=== PATIENT | female | born 1940 | race Caucasian/White ===

== ENCOUNTER 2021-12-30 14:22 | Inpatient (IN) | payer OTHER ==
[2021-12-30] MEDS ORDERED: LORazepam 2 MG/ML SDV VIAL IM ONE (14:47)
[2021-12-30] MEDS ORDERED: LORazepam 2 MG/ML SDV VIAL IVPUSH ONE (14:50)
[2021-12-30] MEDS ORDERED: SODIUM CHLORIDE 1,000 ML IV SCH (15:00)
[2021-12-30 15:32] LABS: BASO % 0.5 % (0-2.0); EOS % 0.6 % (0-4.5); HEMATOCRIT 39.2 % (32.4-45.2); HEMOGLOBIN 13.4 GM/dL (10.7-15.3); LYMPH % 14.3 % (8-40); MCHC 34.1 g/dl (32.0-36.0); MEAN CELL VOLUME 96.6 fl (80-96); MEAN PLT VOLUME 7.7 fl (7.5-11.1); MONO % 14.9 % (3.8-10.2); NEUT % 69.7 % (42.8-82.8); PLATELET COUNT 263 10^3/uL (134-434); RBC 4.05 M/mm3 (3.60-5.2); RDW 13.1 % (11.6-15.6); WHITE BLOOD COUNT 7.3 K/mm3 (4.0-10.0)
[2021-12-30 15:38] LABS: INR 0.97 (0.83-1.09); PROTHROMBIN TIME (PATIENT) 11.2 SEC (9.7-13.0)
[2021-12-30 15:41] LABS: ACTIVATED PTT 27.2 SECONDS (25.2-36.5)
[2021-12-30 15:56] LABS: ALBUMIN 4.1 g/dl (3.4-5.0); BLOOD UREA NITROGEN 15.2 mg/dL (7-18); CALCIUM 9.5 mg/dL (8.5-10.1)
[2021-12-30 16:01] LABS: BILIRUBIN,TOTAL 0.9 mg/dL (0.2-1); TOT PROT 7.4 g/dl (6.4-8.2)
[2021-12-30] MEDS ORDERED: ASPIRIN 81 MG CHEWABLE TABLETS PO ONE (16:08)
[2021-12-30] MEDS ORDERED: ASPIRIN 81 MG CHEWABLE TABLETS ONE (16:25)
[2021-12-30 16:56] LABS: PH,URINE 8.5 (5.0-8.0); URINE APPEARANCE CLEAR; URINE BILIRUBIN NEGATIVE (NEGATIVE); URINE COLOR YELLOW; URINE GLUCOSE (UA) NEGATIVE (NEGATIVE); URINE KETONE NEGATIVE (NEGATIVE); URINE LEUK ESTERASE NEGATIVE (NEGATIVE); URINE NITRITE NEGATIVE (NEGATIVE); URINE PROTEIN NEGATIVE (NEGATIVE); URINE UROBILINOGEN 0.2 mg/dL (0.2-1.0)
[2021-12-30] MEDS: METOPROLOL TARTRATE 50 MG TABLET (FP) PO SCH (23:46)
[2021-12-31 07:48] LABS: HEMATOCRIT 35.5 % (32.4-45.2); HEMOGLOBIN 12.4 GM/dL (10.7-15.3); MCH 34.5 pg (25.7-33.7); MCHC 34.9 g/dl (32.0-36.0); MEAN CELL VOLUME 98.8 fl (80-96); MEAN PLT VOLUME 7.6 fl (7.5-11.1); PLATELET COUNT 221 10^3/uL (134-434); RBC 3.59 M/mm3 (3.60-5.2)
[2021-12-31 08:24] LABS: BLOOD UREA NITROGEN 12.7 mg/dL (7-18)
[2021-12-31 08:27] LABS: CREATININE 0.7 mg/dL (0.55-1.3)
[2021-12-31 08:45] LABS: CALCIUM 7.9 mg/dL (8.5-10.1)
[2021-12-31 09:14] LABS: ANISOCYTOSIS 1+; MACROCYTOSIS 1+; PLATELET ESTIMATE NORMAL
[2021-12-31] MEDS: ASPIRIN COATED 81 MG TABLET.EC PO SCH (09:50)
[2021-12-31] MEDS: METOPROLOL TARTRATE 50 MG TABLET (FP) PO SCH ×2 (09:50→21:26)
[2021-12-31] MEDS: ENOXAPARIN NA (PORCINE) 40 MG/0.4 ML DISP.SYRIN SQ SCH (09:50)
[2021-12-31] MEDS: PANTOPRAZOLE 20 MG TABLET PO SCH (09:50)
[2021-12-31] MEDS ORDERED: HYDROCHLOROTHIAZIDE 12.5 MG CAPSULE (FP) PO SCH (10:00)
[2021-12-31] MEDS ORDERED: PATIENT'S OWN MEDICATION (NON-FORMULARY) (Budesonide/Glycopyr/Formoterol [Breztri Aerosphe IH SCH (10:00)
[2021-12-31] MEDS ORDERED: ATORVASTATIN CA 40 MG TABLET (FP) PO SCH (22:00)
[2022-01-01] MEDS: ACETAMINOPHEN 325 MG TABLET (FP) PO PRN ×2 (02:52→14:53)
[2022-01-01 07:50] LABS: HEMATOCRIT 35.7 % (32.4-45.2); HEMOGLOBIN 12.3 GM/dL (10.7-15.3); MCH 34.1 pg (25.7-33.7); MCHC 34.5 g/dl (32.0-36.0); MEAN CELL VOLUME 98.7 fl (80-96); MEAN PLT VOLUME 7.6 fl (7.5-11.1); PLATELET COUNT 209 10^3/uL (134-434); RBC 3.61 M/mm3 (3.60-5.2); RDW 12.8 % (11.6-15.6); WHITE BLOOD COUNT 5.6 K/mm3 (4.0-10.0)
[2022-01-01 09:10] LABS: ALBUMIN 3.1 g/dl (3.4-5.0); BILIRUBIN,TOTAL 0.6 mg/dL (0.2-1); BLOOD UREA NITROGEN 13.3 mg/dL (7-18); CALCIUM 8.2 mg/dL (8.5-10.1); CREATININE 0.9 mg/dL (0.55-1.3); TOT PROT 5.9 g/dl (6.4-8.2)
[2022-01-01] MEDS: METOPROLOL TARTRATE 50 MG TABLET (FP) PO SCH (10:00)
[2022-01-01] MEDS: ASPIRIN COATED 81 MG TABLET.EC PO SCH (10:00)
[2022-01-01] MEDS ORDERED: DONEPEZIL HCL 5 MG TABLET (FP) PO SCH (10:00)
[2022-01-01] MEDS ORDERED: HYDROCHLOROTHIAZIDE 12.5 MG CAPSULE (FP) PO SCH ×2 (10:00→14:45)
[2022-01-01] MEDS: PANTOPRAZOLE 20 MG TABLET PO SCH (10:01)
[2022-01-01] MEDS: ENOXAPARIN NA (PORCINE) 40 MG/0.4 ML DISP.SYRIN SQ SCH ×2 (10:01→10:05)
[2022-01-01 14:05] VITALS: BP 134/74; PULSE 60; TEMP 98.2
[2022-01-02 14:17] VITALS: BMI 19.3
== END 2022-01-01 17:37 | disposition home or self-care (01) | DRG 57 ==
LOC: JER 14:22 → JERBED 17:55 → J4W 22:32
PROVIDERS: ADMIT Internal Medicine; ATTEND Internal Medicine
DX: G30.9 Alzheimer's disease, unspecified (principal); F02.81 Dementia in other diseases classified elsewhere, unspecified severity, with behavioral disturbance; I10 Essential (primary) hypertension; E78.5 Hyperlipidemia, unspecified; J44.9 Chronic obstructive pulmonary disease, unspecified; G43.909 Migraine, unspecified, not intractable, without status migrainosus; E11.40 Type 2 diabetes mellitus with diabetic neuropathy, unspecified; G62.9 Polyneuropathy, unspecified
CPT/HCPCS: 36415; 70450-TC; 70496-TC; 70498-TC; 80048; 80053; 80061; 81003; 82607; 82746; 82962; 83036; 84443; 85025; 85027; 85610; 85730; 86618; 86780; 86850; 86900; 86901; 93005; 93010; 99291; C9803-CS; U0003; U0005

== ENCOUNTER 2022-06-12 09:25 | Inpatient (IN) | payer OTHER ==
[2022-06-12 09:36] VITALS: BMI 21.9
[2022-06-12 11:29] LABS: HEMATOCRIT 38.3 % (32.4-45.2); MCH 32.3 pg (25.7-33.7); MEAN PLT VOLUME 7.7 fl (7.5-11.1); PLATELET COUNT 159 10^3/uL (134-434); RBC 4.03 M/mm3 (3.60-5.2); RDW 13.4 % (11.6-15.6); WHITE BLOOD COUNT 3.6 K/mm3 (4.0-10.0)
[2022-06-12 11:44] LABS: ALBUMIN 3.8 g/dl (3.4-5.0); BLOOD UREA NITROGEN 11.8 mg/dL (7-18); MAGNESIUM 2.1 mg/dL (1.8-2.4)
[2022-06-12 11:46] LABS: CREATININE 0.9 mg/dL (0.55-1.3); PHOSPHOROUS 3.8 mg/dL (2.5-4.9)
[2022-06-12 11:49] LABS: BILIRUBIN,TOTAL 0.6 mg/dL (0.2-1); TOT PROT 7.2 g/dl (6.4-8.2)
[2022-06-12 12:39] LABS: ANISOCYTOSIS 0; HELMET CELLS 0; HOWELL-JOLLY BODIES 0; MACROCYTOSIS 0; OVALOCYTE 0; ROULEAU 0; SICKELED CELLS 0; TARGET CELLS 0; TEAR DROP CELLS 0; TOXIC GRANULATION 0
[2022-06-12] MEDS ORDERED: SODIUM CHLORIDE 0.9% 500 ML INFUS.BAG IV ONE (13:28)
[2022-06-12 14:04] LABS: EPI CELLS >36 /uL (0-25.1); HYALINE CASTS 1 /uL (0-3.1); PH,URINE 7.5 (5.0-8.0); URINE APPEARANCE CLOUDY; URINE BACTERIA 2718 /uL (0-1359); URINE BILIRUBIN NEGATIVE (NEGATIVE); URINE COLOR YELLOW; URINE GLUCOSE (UA) NEGATIVE (NEGATIVE); URINE KETONE TRACE (NEGATIVE); URINE LEUK ESTERASE 1+ (NEGATIVE); URINE NITRITE NEGATIVE (NEGATIVE); URINE PROTEIN TRACE (NEGATIVE); URINE RBC 38 /uL (0-23.9); URINE UROBILINOGEN 0.2 mg/dL (0.2-1.0); URINE WBC 97 /uL (0-25.8)
[2022-06-12] MEDS: DONEPEZIL HCL 5 MG TABLET (FP) PO SCH (22:33)
[2022-06-13 07:29] LABS: HEMATOCRIT 40.3 % (32.4-45.2); HEMOGLOBIN 13.9 GM/dL (10.7-15.3); MCHC 34.4 g/dl (32.0-36.0); MEAN PLT VOLUME 7.5 fl (7.5-11.1); PLATELET COUNT 137 10^3/uL (134-434); RBC 4.33 M/mm3 (3.60-5.2); RDW 13.3 % (11.6-15.6); WHITE BLOOD COUNT 4.4 K/mm3 (4.0-10.0)
[2022-06-13 07:47] LABS: CALCIUM 8.5 mg/dL (8.5-10.1)
[2022-06-13 07:48] LABS: BLOOD UREA NITROGEN 13.3 mg/dL (7-18); MAGNESIUM 2.1 mg/dL (1.8-2.4)
[2022-06-13 07:51] LABS: CREATININE 0.8 mg/dL (0.55-1.3)
[2022-06-13 07:52] LABS: PHOSPHOROUS 3.7 mg/dL (2.5-4.9)
[2022-06-13 09:41] LABS: ANISOCYTOSIS 2+
[2022-06-13] MEDS: ASPIRIN COATED 81 MG TABLET.EC PO SCH (09:42)
[2022-06-13] MEDS: ENOXAPARIN NA (PORCINE) 40 MG/0.4 ML DISP.SYRIN SQ SCH (09:42)
[2022-06-13] MEDS: DONEPEZIL HCL 5 MG TABLET (FP) PO SCH (21:51)
[2022-06-14] MEDS ORDERED: ADENOSINE 6 MG/2 ML VIAL IVPUSH ONE (05:58)
[2022-06-14] MEDS: METOPROLOL TARTRATE 25 MG TABLET (FP) PO SCH ×2 (06:33→22:52)
[2022-06-14 08:05] LABS: HEMATOCRIT 42.4 % (32.4-45.2); HEMOGLOBIN 14.2 GM/dL (10.7-15.3); MCH 31.3 pg (25.7-33.7); MCHC 33.5 g/dl (32.0-36.0); MEAN CELL VOLUME 93.6 fl (80-96); PLATELET COUNT 153 10^3/uL (134-434); RBC 4.53 M/mm3 (3.60-5.2); RDW 13.4 % (11.6-15.6); WHITE BLOOD COUNT 3.7 K/mm3 (4.0-10.0)
[2022-06-14 08:23] LABS: ALBUMIN 3.5 g/dl (3.4-5.0); BLOOD UREA NITROGEN 15.8 mg/dL (7-18); CALCIUM 8.2 mg/dL (8.5-10.1)
[2022-06-14 08:24] LABS: MAGNESIUM 2.1 mg/dL (1.8-2.4)
[2022-06-14 08:26] LABS: CREATININE 0.8 mg/dL (0.55-1.3); PHOSPHOROUS 3.3 mg/dL (2.5-4.9)
[2022-06-14 08:29] LABS: BILIRUBIN,TOTAL 0.5 mg/dL (0.2-1); TOT PROT 6.8 g/dl (6.4-8.2)
[2022-06-14] MEDS ORDERED: POTASSIUM CHLORIDE TABS 10 MEQ TABLET.ER (FP) PO ONE (09:55)
[2022-06-14] MEDS: ASPIRIN COATED 81 MG TABLET.EC PO SCH (09:58)
[2022-06-14] MEDS: ENOXAPARIN NA (PORCINE) 40 MG/0.4 ML DISP.SYRIN SQ SCH (09:58)
[2022-06-14] MEDS ORDERED: METOPROLOL TARTRATE 25 MG TABLET (FP) PO SCH (10:00)
[2022-06-14 10:07] LABS: N-TERMINAL BNP 1065.7 pg/ml (5-450)
[2022-06-14] MEDS: POTASSIUM CHLORIDE ORAL LIQUID 20 MEQ/15 ML PO SCH ×2 (12:11→22:52)
[2022-06-14] MEDS ORDERED: PIPERACILLIN/TAZOB 3.375 GM 3.375 GM in DEXTROSE 5%-WATER - 50 ML IVPB SCH ×2 (14:45→17:05)
[2022-06-14] MEDS: DONEPEZIL HCL 5 MG TABLET (FP) PO SCH (22:52)
[2022-06-15] MEDS: PIPERACILLIN/TAZOB 3.375 GM 3.375 GM in DEXTROSE 5%-WATER - 50 ML IVPB SCH ×3 (00:38→18:48)
[2022-06-15] MEDS: POTASSIUM CHLORIDE ORAL LIQUID 20 MEQ/15 ML PO SCH ×2 (10:33→21:41)
[2022-06-15] MEDS: ENOXAPARIN NA (PORCINE) 40 MG/0.4 ML DISP.SYRIN SQ SCH (10:36)
[2022-06-15] MEDS: ASPIRIN COATED 81 MG TABLET.EC PO SCH (10:37)
[2022-06-15] MEDS: METOPROLOL TARTRATE 25 MG TABLET (FP) PO SCH ×2 (10:37→21:41)
[2022-06-15] MEDS: APIXABAN 2.5 MG TABLET PO SCH ×2 (12:43→21:41)
[2022-06-15] MEDS: DONEPEZIL HCL 5 MG TABLET (FP) PO SCH (21:41)
[2022-06-16] MEDS: PIPERACILLIN/TAZOB 3.375 GM 3.375 GM in DEXTROSE 5%-WATER - 50 ML IVPB SCH ×3 (01:18→17:18)
[2022-06-16 08:40] LABS: HEMATOCRIT 37.6 % (32.4-45.2); HEMOGLOBIN 12.6 GM/dL (10.7-15.3); MCH 31.5 pg (25.7-33.7); MCHC 33.4 g/dl (32.0-36.0); MEAN CELL VOLUME 94.4 fl (80-96); MEAN PLT VOLUME 7.9 fl (7.5-11.1); PLATELET COUNT 154 10^3/uL (134-434); RBC 3.98 M/mm3 (3.60-5.2); RDW 13.5 % (11.6-15.6); WHITE BLOOD COUNT 3.3 K/mm3 (4.0-10.0)
[2022-06-16 09:08] LABS: BILIRUBIN,TOTAL 0.5 mg/dL (0.2-1); CALCIUM 8.3 mg/dL (8.5-10.1)
[2022-06-16 09:09] LABS: TOT PROT 5.9 g/dl (6.4-8.2)
[2022-06-16 09:10] LABS: MAGNESIUM 2.1 mg/dL (1.8-2.4); PHOSPHOROUS 4.2 mg/dL (2.5-4.9)
[2022-06-16 09:13] LABS: BLOOD UREA NITROGEN 19.5 mg/dL (7-18)
[2022-06-16 09:15] LABS: CREATININE 0.9 mg/dL (0.55-1.3)
[2022-06-16 09:34] LABS: ANISOCYTOSIS 0; HELMET CELLS 0; HOWELL-JOLLY BODIES 0; MACROCYTOSIS 0; OVALOCYTE 0; ROULEAU 0; SICKELED CELLS 0; TARGET CELLS 0; TEAR DROP CELLS 0; TOXIC GRANULATION 0
[2022-06-16] MEDS: METOPROLOL TARTRATE 25 MG TABLET (FP) PO SCH (10:31)
[2022-06-16] MEDS: APIXABAN 2.5 MG TABLET PO SCH ×2 (10:31→21:47)
[2022-06-16] MEDS: POTASSIUM CHLORIDE ORAL LIQUID 20 MEQ/15 ML PO SCH ×2 (10:32→21:48)
[2022-06-16] MEDS ORDERED: PIPERACILLIN/TAZOBACTAM 3.375 GM VIAL IVPB ONE (16:51)
[2022-06-16] MEDS: DONEPEZIL HCL 5 MG TABLET (FP) PO SCH (21:48)
[2022-06-16] MEDS ORDERED: metoPROLOL SUCCINATE 25 MG TAB.SR.24H (FP) PO SCH (22:00)
[2022-06-17] MEDS: PIPERACILLIN/TAZOB 3.375 GM 3.375 GM in DEXTROSE 5%-WATER - 50 ML IVPB SCH ×3 (01:19→18:33)
[2022-06-17] MEDS ORDERED: METOPROLOL TARTRATE 5 MG/5 ML VIAL IVPUSH ONE (02:36)
[2022-06-17] MEDS ORDERED: dilTIAZem HCL 50 MG/10 ML - 10 ML VIAL IVPUSH ONE ×2 (03:36→09:02)
[2022-06-17] MEDS ORDERED: dilTIAZem HCL 50 MG/10 ML - 10 ML VIAL IVPUSH PRN (05:16)
[2022-06-17] MEDS ORDERED: ACETAMINOPHEN 325 MG TABLET (FP) PO PRN (07:49)
[2022-06-17] MEDS ORDERED: dilTIAZem HCL 25 MG/5 ML - 5 ML VIAL IVPUSH ONE (08:30)
[2022-06-17] MEDS: METOPROLOL TARTRATE 50 MG TABLET (FP) PO SCH ×2 (09:31→22:37)
[2022-06-17] MEDS: APIXABAN 2.5 MG TABLET PO SCH ×2 (09:31→22:37)
[2022-06-17] MEDS: HYDROCORTISONE 2.5% TOPICAL CREAM 30 GM TUBE RC SCH ×2 (11:59→22:37)
[2022-06-17] MEDS: POTASSIUM CHLORIDE ORAL LIQUID 20 MEQ/15 ML PO SCH (12:39)
[2022-06-17] MEDS: DONEPEZIL HCL 5 MG TABLET (FP) PO SCH (22:37)
[2022-06-18] MEDS: PIPERACILLIN/TAZOB 3.375 GM 3.375 GM in DEXTROSE 5%-WATER - 50 ML IVPB SCH ×3 (01:22→17:25)
[2022-06-18] MEDS: VALSARTAN 80 MG TABLET PO SCH (10:33)
[2022-06-18] MEDS: POTASSIUM CHLORIDE ORAL LIQUID 20 MEQ/15 ML PO SCH (10:33)
[2022-06-18] MEDS: METOPROLOL TARTRATE 50 MG TABLET (FP) PO SCH ×2 (10:33→21:24)
[2022-06-18] MEDS: APIXABAN 2.5 MG TABLET PO SCH ×2 (10:33→21:24)
[2022-06-18] MEDS: HYDROCORTISONE 2.5% TOPICAL CREAM 30 GM TUBE RC SCH ×2 (10:33→21:25)
[2022-06-18] MEDS: AMOX TR/POT CLAV 875MG/125MG TABLETS (FP) PO SCH (18:08)
[2022-06-18] MEDS: DONEPEZIL HCL 5 MG TABLET (FP) PO SCH (21:24)
[2022-06-19] MEDS: HYDROCORTISONE 2.5% TOPICAL CREAM 30 GM TUBE RC SCH (09:54)
[2022-06-19] MEDS: AMOX TR/POT CLAV 875MG/125MG TABLETS (FP) PO SCH (09:54)
[2022-06-19] MEDS: METOPROLOL TARTRATE 50 MG TABLET (FP) PO SCH (09:55)
[2022-06-19] MEDS: VALSARTAN 80 MG TABLET PO SCH (09:55)
[2022-06-19] MEDS: APIXABAN 2.5 MG TABLET PO SCH (09:55)
[2022-06-19] MEDS: POTASSIUM CHLORIDE ORAL LIQUID 20 MEQ/15 ML PO SCH (09:55)
[2022-06-19 10:53] VITALS: BP 140/94; PULSE 88; RESP 17; TEMP 98.2
== END 2022-06-19 14:39 | disposition home or self-care (01) | DRG 689 ==
LOC: JER 09:25 → UNDOADMOB 13:17 → JERBED 13:17 → INTOOBSV 13:17 → JERBED 14:24 → J4W 20:34 → OBSVTOIN 06-14 13:17
PROVIDERS: ADMIT Internal Medicine
DX: N39.0 Urinary tract infection, site not specified (principal); U07.1 COVID-19; I50.30 Unspecified diastolic (congestive) heart failure; I24.8 Other forms of acute ischemic heart disease; I47.1 Supraventricular tachycardia; I48.0 Paroxysmal atrial fibrillation; F03.90 Unspecified dementia, unspecified severity, without behavioral disturbance, psychotic disturbance, mood disturbance, and anxiety; K21.9 Gastro-esophageal reflux disease without esophagitis; I25.119 Atherosclerotic heart disease of native coronary artery with unspecified angina pectoris; I11.0 Hypertensive heart disease with heart failure; E87.6 Hypokalemia
CPT/HCPCS: 0241U-QW; 36415; 70450-TC; 71045-TC-FY; 72125-TC; 72170-TC-FY; 80048; 80053; 81003; 82550; 82553; 83735; 83880; 84100; 84439; 84443; 84484; 85025; 85027; 85651; 86140; 87086; 87186; 87324; 87449; 93005; 93010; 93306-TC; 93880-TC; 97116-GP; 97162-GP; 99285-25; G0378

== ENCOUNTER 2022-09-01 10:11 | Emergency (ER) | payer OTHER ==
[2022-09-01 11:29] VITALS: TEMP 98.3; BMI 27.4
[2022-09-01] MEDS ORDERED: MAG HYDROX/AL HYDROX/SIMETH 30 ML UNIT-DOSE CUP PO ONE (11:32)
[2022-09-01] MEDS ORDERED: FAMOTIDINE 20 MG/50 ML IVPB 20 MG/50 ML MG IVPB ONE ×2 (11:32→11:35)
[2022-09-01] MEDS ORDERED: ACETAMINOPHEN 1000 MG/100 ML BAG IVPB ONE (11:32)
[2022-09-01 11:33] VITALS: BP 140/97; PULSE 64; RESP 15
[2022-09-01] MEDS ORDERED: MAG HYDROX/AL HYDROX/SIMETH 30 ML UNIT-DOSE CUP ONE (11:35)
[2022-09-01] MEDS ORDERED: ACETAMINOPHEN INJECTION 100 ML IVPB ONE (11:35)
[2022-09-01 12:02] LABS: HEMATOCRIT 35.9 % (32.4-45.2); HEMOGLOBIN 12.1 GM/dL (10.7-15.3); MCH 31.9 pg (25.7-33.7); MCHC 33.7 g/dl (32.0-36.0); MEAN CELL VOLUME 94.6 fl (80-96); MEAN PLT VOLUME 7.5 fl (7.5-11.1); PLATELET COUNT 183 10^3/uL (134-434); RBC 3.79 M/mm3 (3.60-5.2); RDW 13.5 % (11.6-15.6); WHITE BLOOD COUNT 5.9 K/mm3 (4.0-10.0)
[2022-09-01 12:03] LABS: EPI CELLS >36 /uL (0-25.1); HYALINE CASTS 1 /uL (0-3.1); PH,URINE 7.5 (5.0-8.0); URINE APPEARANCE CLOUDY; URINE BACTERIA 367 /uL (0-1359); URINE BILIRUBIN NEGATIVE (NEGATIVE); URINE COLOR YELLOW; URINE GLUCOSE (UA) NEGATIVE (NEGATIVE); URINE KETONE TRACE (NEGATIVE); URINE LEUK ESTERASE TRACE (NEGATIVE); URINE NITRITE NEGATIVE (NEGATIVE); URINE PROTEIN TRACE (NEGATIVE); URINE RBC 22 /uL (0-23.9); URINE WBC 14 /uL (0-25.8)
[2022-09-01 12:23] LABS: ALBUMIN 3.3 g/dl (3.4-5.0); BLOOD UREA NITROGEN 12.5 mg/dL (7-18); MAGNESIUM 1.9 mg/dL (1.8-2.4)
[2022-09-01 12:24] LABS: CALCIUM 8.8 mg/dL (8.5-10.1)
[2022-09-01 12:25] LABS: ANISOCYTOSIS 0; MACROCYTOSIS 0
[2022-09-01 12:26] LABS: CREATININE 0.7 mg/dL (0.55-1.3)
[2022-09-01 12:27] LABS: BILIRUBIN,TOTAL 0.8 mg/dL (0.2-1)
[2022-09-01 12:28] LABS: TOT PROT 6.3 g/dl (6.4-8.2)
== END 2022-09-01 15:29 | disposition home or self-care (01) ==
LOC: JER 10:11
PROC: 3E0333Z Introduction of Anti-inflammatory into Peripheral Vein, Percutaneous Approach (ICD-10-PCS; principal; 2022-09-01)
PROC: 3E033GC Introduction of Other Therapeutic Substance into Peripheral Vein, Percutaneous Approach (ICD-10-PCS; 2022-09-01)
DX: S09.90XA Unspecified injury of head, initial encounter (principal); R07.9 Chest pain, unspecified; W01.0XXA Fall on same level from slipping, tripping and stumbling without subsequent striking against object, initial encounter
CPT/HCPCS: 0241U-QW; 70450-TC; 71045-TC-FY; 71250-TC; 72125-TC; 80053; 81003; 83735; 84484; 85025; 87086; 93005; 93010; 99285-25

== ENCOUNTER 2022-11-15 16:26 | Inpatient (IN) | payer OTHER ==
[2022-11-15] MEDS ORDERED: LORazepam 2 MG/ML SDV VIAL IVPUSH ONE ×2 (17:15→19:56)
[2022-11-15 17:28] LABS: VENOUS BASE EXCESS -1.3 mmol/L (-2-2); VENOUS PCO2 41.7 mmHg (38-52); VENOUS PH 7.375 (7.310-7.410)
[2022-11-15 17:31] LABS: BASO % 0.8 % (0-2.0); EOS % 2.1 % (0-4.5); HEMATOCRIT 37.8 % (32.4-45.2); HEMOGLOBIN 12.6 GM/dL (10.7-15.3); LYMPH % 30.3 % (8-40); MCH 30.9 pg (25.7-33.7); MCHC 33.3 g/dl (32.0-36.0); MEAN CELL VOLUME 92.9 fl (80-96); MEAN PLT VOLUME 7.5 fl (7.5-11.1); MONO % 26.1 % (3.8-10.2); NEUT % 40.7 % (42.8-82.8); PLATELET COUNT 234 10^3/uL (134-434); RBC 4.07 M/mm3 (3.60-5.2); RDW 14.4 % (11.6-15.6); WHITE BLOOD COUNT 5.9 K/mm3 (4.0-10.0)
[2022-11-15 17:37] LABS: INR 1.04 (0.83-1.09); PROTHROMBIN TIME (PATIENT) 12.1 SEC (9.7-13.0)
[2022-11-15 17:40] LABS: ACTIVATED PTT 28.8 SECONDS (25.2-36.5)
[2022-11-15 17:50] LABS: ALBUMIN 3.7 g/dl (3.4-5.0)
[2022-11-15 17:51] LABS: BLOOD UREA NITROGEN 18.4 mg/dL (7-18)
[2022-11-15 17:53] LABS: CREATININE 1.1 mg/dL (0.55-1.3)
[2022-11-15 17:55] LABS: TOT PROT 7.3 g/dl (6.4-8.2)
[2022-11-15 17:56] LABS: BILIRUBIN,TOTAL 0.6 mg/dL (0.2-1)
[2022-11-15 17:59] LABS: ANISOCYTOSIS 1+; MACROCYTOSIS 0; OVALOCYTE 1+; TARGET CELLS 2+
[2022-11-15 18:57] LABS: PH,URINE 7.5 (5.0-8.0); URINE APPEARANCE CLEAR; URINE BILIRUBIN NEGATIVE (NEGATIVE); URINE COLOR YELLOW; URINE GLUCOSE (UA) NEGATIVE (NEGATIVE); URINE KETONE NEGATIVE (NEGATIVE); URINE LEUK ESTERASE NEGATIVE (NEGATIVE); URINE NITRITE NEGATIVE (NEGATIVE); URINE PROTEIN NEGATIVE (NEGATIVE); URINE UROBILINOGEN 0.2 mg/dL (0.2-1.0)
[2022-11-16] MEDS ORDERED: hydrALAZINE HCL 20 MG/ML VIAL IVPUSH PRN (01:21)
[2022-11-16 07:24] LABS: CALCIUM 8.5 mg/dL (8.5-10.1)
[2022-11-16 07:25] LABS: ALBUMIN 3.4 g/dl (3.4-5.0); BLOOD UREA NITROGEN 10.9 mg/dL (7-18); MAGNESIUM 1.7 mg/dL (1.8-2.4)
[2022-11-16 07:28] LABS: CREATININE 0.7 mg/dL (0.55-1.3); PHOSPHOROUS 3.1 mg/dL (2.5-4.9)
[2022-11-16 07:29] LABS: BILIRUBIN,TOTAL 0.7 mg/dL (0.2-1); TOT PROT 6.9 g/dl (6.4-8.2)
[2022-11-16 07:38] LABS: HEMATOCRIT 37.9 % (32.4-45.2); HEMOGLOBIN 13.1 GM/dL (10.7-15.3); MCH 31.7 pg (25.7-33.7); MCHC 34.5 g/dl (32.0-36.0); MEAN CELL VOLUME 91.9 fl (80-96); MEAN PLT VOLUME 7.7 fl (7.5-11.1); PLATELET COUNT 188 10^3/uL (134-434); RBC 4.13 M/mm3 (3.60-5.2); RDW 14.4 % (11.6-15.6); WHITE BLOOD COUNT 6.9 K/mm3 (4.0-10.0)
[2022-11-16 09:19] LABS: ANISOCYTOSIS 0; HELMET CELLS 0; HOWELL-JOLLY BODIES 0; MACROCYTOSIS 0; OVALOCYTE 0; ROULEAU 0; SICKELED CELLS 0; TARGET CELLS 0; TEAR DROP CELLS 0; TOXIC GRANULATION 0
[2022-11-16] MEDS ORDERED: DONEPEZIL HCL 10 MG TABLET (FP) PO SCH (10:00)
[2022-11-16] MEDS ORDERED: DONEPEZIL HCL 5 MG TABLET (FP) ONE (10:17)
[2022-11-16] MEDS ORDERED: PANTOPRAZOLE 20 MG TABLET PO ONE (10:17)
[2022-11-16] MEDS ORDERED: ENOXAPARIN NA (PORCINE) 40 MG/0.4 ML DISP.SYRIN SQ ONE (10:18)
[2022-11-16] MEDS ORDERED: MULTIVITAMINS (DAILY MVI) TABLET (FP) ONE (10:18)
[2022-11-16] MEDS: ENOXAPARIN NA (PORCINE) 40 MG/0.4 ML DISP.SYRIN SQ SCH (12:14)
[2022-11-16] MEDS: PYRIDOXINE HCL (B-6) 100 MG TABLET PO SCH (12:15)
[2022-11-16] MEDS: PANTOPRAZOLE 20 MG TABLET PO SCH (12:15)
[2022-11-16] MEDS: MULTIVITAMINS (DAILY MVI) TABLET (FP) PO SCH (12:15)
[2022-11-16] MEDS ORDERED: MAGNESIUM OXIDE 400 MG TABLET (FP) PO ONE (16:38)
[2022-11-16] MEDS: POTASSIUM CHLORIDE ORAL LIQUID 20 MEQ/15 ML PO ONE ×2 (17:56→19:49)
[2022-11-16] MEDS ORDERED: POTASSIUM CHLORIDE ORAL LIQUID 20 MEQ/15 ML PO ONE (20:00)
[2022-11-16] MEDS ORDERED: LORazepam 2 MG/ML SDV VIAL IVPUSH ONE ×2 (21:05)
[2022-11-16] MEDS ORDERED: LABETALOL HCL 20 MG/4 ML VIAL IVPUSH ONE (21:11)
[2022-11-16] MEDS ORDERED: VANCOMYCIN 1 GM/200 ML PREMIX BAG (RESTRICTED TO ID ONLY) IVPB ONE (21:16)
[2022-11-16] MEDS ORDERED: VALPROATE SODIUM 500 MG/5 ML VIAL IVPB SCH (22:00)
[2022-11-16] MEDS ORDERED: CEFTRIAXONE 2 GM in DEXTROSE 5%-WATER 100 ML IVPB ONE ×2 (22:00→23:30)
[2022-11-16] MEDS ORDERED: PRAMIPEXOLE DIHYDROCHLORIDE 0.25 MG TABLET PO SCH (22:00)
[2022-11-16] MEDS ORDERED: DIVALPROEX NA *ER* EXTEND REL 500 MG TABLET.SA (FP) PO SCH (22:00)
[2022-11-16] MEDS ORDERED: ACETAMINOPHEN 1000 MG/100 ML BAG IVPB ONE (22:34)
[2022-11-16] MEDS: CALCIUM (OYSTER SHELL) 500 MG TABLET (FP) PO SCH (23:10)
[2022-11-16 23:46] LABS: CSF COLOR PINK (COLORLESS)
[2022-11-16 23:47] LABS: CSF APPEARANCE SLIGHTLY CLOUDY (CLEAR)
[2022-11-16 23:49] LABS: CSF WBC 0 mm3 (0-5)
[2022-11-17 00:04] LABS: BF GLUCOSE (CSF ONLY) 65 mg/dL (40-70)
[2022-11-17] MEDS: VALPROATE SODIUM INJECTION 500 MG in DEXTROSE 5%-WATER - 100 ML IVPB SCH ×3 (01:08→23:23)
[2022-11-17] MEDS: SODIUM CHLORIDE 1,000 ML IV SCH ×2 (01:09→17:47)
[2022-11-17] MEDS: ACYCLOVIR INJECTION 500 MG in DEXTROSE 5%-WATER - 100 ML IVPB SCH ×4 (01:23→18:47)
[2022-11-17 08:08] LABS: BASO % 0.6 % (0-2.0); EOS % 0.3 % (0-4.5); HEMATOCRIT 36.6 % (32.4-45.2); HEMOGLOBIN 12.8 GM/dL (10.7-15.3); MCH 31.6 pg (25.7-33.7); MCHC 34.9 g/dl (32.0-36.0); MEAN CELL VOLUME 90.8 fl (80-96); MEAN PLT VOLUME 7.6 fl (7.5-11.1); MONO % 18.5 % (3.8-10.2); NEUT % 70.6 % (42.8-82.8); PLATELET COUNT 198 10^3/uL (134-434); RBC 4.03 M/mm3 (3.60-5.2); RDW 14.2 % (11.6-15.6); WHITE BLOOD COUNT 6.9 K/mm3 (4.0-10.0)
[2022-11-17 09:00] LABS: ALBUMIN 3.1 g/dl (3.4-5.0); CALCIUM 8.5 mg/dL (8.5-10.1)
[2022-11-17 09:01] LABS: BLOOD UREA NITROGEN 19.8 mg/dL (7-18); CREATININE 0.8 mg/dL (0.55-1.3)
[2022-11-17 09:02] LABS: BILIRUBIN,TOTAL 0.5 mg/dL (0.2-1)
[2022-11-17 09:03] LABS: TOT PROT 6.2 g/dl (6.4-8.2)
[2022-11-17] MEDS: ENOXAPARIN NA (PORCINE) 40 MG/0.4 ML DISP.SYRIN SQ SCH (10:25)
[2022-11-17] MEDS: PYRIDOXINE HCL (B-6) 100 MG TABLET PO SCH (10:27)
[2022-11-17] MEDS: MULTIVITAMINS (DAILY MVI) TABLET (FP) PO SCH (10:27)
[2022-11-17] MEDS: PANTOPRAZOLE 20 MG TABLET PO SCH (10:27)
[2022-11-17] MEDS ORDERED: HYDROCHLOROTHIAZIDE PO SCH (18:00)
[2022-11-17] MEDS ORDERED: BISOPROLOL PO SCH (18:00)
[2022-11-17] MEDS: HYDROCHLOROTHIAZIDE PO SCH (18:24)
[2022-11-17] MEDS: BISOPROLOL PO SCH (18:24)
[2022-11-17] MEDS ORDERED: ACETAMINOPHEN 1000 MG/100 ML BAG IVPB PRN (19:13)
[2022-11-17 20:36] LABS: EPI CELLS 8 /uL (0-25.1); HYALINE CASTS 1 /uL (0-3.1); URINE APPEARANCE CLEAR; URINE BACTERIA 6 /uL (0-1359); URINE BILIRUBIN NEGATIVE (NEGATIVE); URINE COLOR YELLOW; URINE GLUCOSE (UA) NEGATIVE (NEGATIVE); URINE KETONE 2+ (NEGATIVE); URINE LEUK ESTERASE NEGATIVE (NEGATIVE); URINE NITRITE NEGATIVE (NEGATIVE); URINE PROTEIN 1+ (NEGATIVE); URINE RBC 42 /uL (0-23.9); URINE UROBILINOGEN 0.2 mg/dL (0.2-1.0); URINE WBC 5 /uL (0-25.8)
[2022-11-17] MEDS: PIPERACILLIN/TAZOB 3.375 GM 3.375 GM in DEXTROSE 5%-WATER - 50 ML IVPB SCH (21:07)
[2022-11-17] MEDS: CALCIUM (OYSTER SHELL) 500 MG TABLET (FP) PO SCH (23:00)
[2022-11-18] MEDS: ACYCLOVIR INJECTION 500 MG in DEXTROSE 5%-WATER - 100 ML IVPB SCH ×3 (01:59→17:06)
[2022-11-18] MEDS: PIPERACILLIN/TAZOB 3.375 GM 3.375 GM in DEXTROSE 5%-WATER - 50 ML IVPB SCH ×3 (03:11→18:00)
[2022-11-18] MEDS: SODIUM CHLORIDE 1,000 ML IV SCH (07:54)
[2022-11-18] MEDS: ENOXAPARIN NA (PORCINE) 40 MG/0.4 ML DISP.SYRIN SQ SCH (10:46)
[2022-11-18] MEDS: HYDROCHLOROTHIAZIDE PO SCH (10:59)
[2022-11-18] MEDS: BISOPROLOL PO SCH (10:59)
[2022-11-18] MEDS: PANTOPRAZOLE 20 MG TABLET PO SCH (10:59)
[2022-11-18] MEDS: MULTIVITAMINS (DAILY MVI) TABLET (FP) PO SCH (10:59)
[2022-11-18] MEDS: PYRIDOXINE HCL (B-6) 100 MG TABLET PO SCH (11:00)
[2022-11-18] MEDS: VALPROATE SODIUM INJECTION 500 MG in DEXTROSE 5%-WATER - 100 ML IVPB SCH ×2 (12:38→21:53)
[2022-11-18] MEDS: D5-1/2NS+20 MEQ KCL - 20 MEQ/1,000 ML INFUS.BAG IV SCH (13:53)
[2022-11-18 17:49] LABS: BASO % 0.8 % (0-2.0); EOS % 0.3 % (0-4.5); HEMATOCRIT 36.3 % (32.4-45.2); HEMOGLOBIN 12.5 GM/dL (10.7-15.3); MCH 31.4 pg (25.7-33.7); MCHC 34.6 g/dl (32.0-36.0); MEAN CELL VOLUME 90.8 fl (80-96); MEAN PLT VOLUME 7.6 fl (7.5-11.1); MONO % 20.5 % (3.8-10.2); NEUT % 67.4 % (42.8-82.8); PLATELET COUNT 189 10^3/uL (134-434); RDW 14.6 % (11.6-15.6); WHITE BLOOD COUNT 9.1 K/mm3 (4.0-10.0)
[2022-11-18] MEDS ORDERED: METOPROLOL TARTRATE 5 MG/5 ML VIAL IVPUSH ONE (17:51)
[2022-11-18 18:09] LABS: ALBUMIN 2.6 g/dl (3.4-5.0); BLOOD UREA NITROGEN 14.9 mg/dL (7-18); MAGNESIUM 1.7 mg/dL (1.8-2.4)
[2022-11-18] MEDS ORDERED: ADENOSINE 6 MG/2 ML VIAL IVPUSH ONE ×2 (18:11→18:20)
[2022-11-18 18:12] LABS: CREATININE 0.7 mg/dL (0.55-1.3)
[2022-11-18 18:14] LABS: BILIRUBIN,TOTAL 0.8 mg/dL (0.2-1); TOT PROT 5.5 g/dl (6.4-8.2)
[2022-11-18 18:25] LABS: ANISOCYTOSIS 1+; MACROCYTOSIS 0
[2022-11-18] MEDS ORDERED: dilTIAZem HCL 50 MG/10 ML - 10 ML VIAL IVPUSH ONE (19:07)
[2022-11-18] MEDS ORDERED: SODIUM CHLORIDE 500 ML IV STA (19:08)
[2022-11-18] MEDS ORDERED: KCL 10 MEQ IVPB 10 MEQ/100 ML INFUS.BAG IVPB SCH (19:15)
[2022-11-18] MEDS ORDERED: dilTIAZem HCL 25 MG/5 ML - 5 ML VIAL IVPUSH ONE (19:20)
[2022-11-18] MEDS ORDERED: MAGNESIUM SULFATE IN WATER 2 GM/50 ML IVPB IVPB ONE (19:20)
[2022-11-18] MEDS: ENOXAPARIN NA (PORCINE) 60 MG/0.6 ML DISP.SYRIN SQ SCH (21:24)
[2022-11-18] MEDS: CHLORHEXIDINE GLUCONATE 4% CLEANSER FOR DECOLONIZATION TP SCH (21:24)
[2022-11-18] MEDS: MUPIROCIN 2% TOPICAL OINTMENT FOR DECOLONIZATION NS SCH (21:24)
[2022-11-19] MEDS: ACYCLOVIR INJECTION 500 MG in DEXTROSE 5%-WATER - 100 ML IVPB SCH ×3 (01:05→17:57)
[2022-11-19] MEDS: PIPERACILLIN/TAZOB 3.375 GM 3.375 GM in DEXTROSE 5%-WATER - 50 ML IVPB SCH ×3 (01:35→17:01)
[2022-11-19] MEDS: D5-1/2NS+20 MEQ KCL - 20 MEQ/1,000 ML INFUS.BAG IV SCH ×3 (06:47→20:01)
[2022-11-19 07:03] LABS: BASO % 0.6 % (0-2.0); EOS % 0.3 % (0-4.5); HEMATOCRIT 39.5 % (32.4-45.2); HEMOGLOBIN 13.2 GM/dL (10.7-15.3); LYMPH % 9.1 % (8-40); MCH 30.8 pg (25.7-33.7); MCHC 33.5 g/dl (32.0-36.0); MEAN PLT VOLUME 7.8 fl (7.5-11.1); MONO % 18.3 % (3.8-10.2); NEUT % 71.7 % (42.8-82.8); PLATELET COUNT 224 10^3/uL (134-434); RDW 14.8 % (11.6-15.6); WHITE BLOOD COUNT 8.7 K/mm3 (4.0-10.0)
[2022-11-19 07:10] LABS: INR 1.09 (0.83-1.09); PROTHROMBIN TIME (PATIENT) 12.6 SEC (9.7-13.0)
[2022-11-19 07:29] LABS: ALBUMIN 2.8 g/dl (3.4-5.0); CALCIUM 8.1 mg/dL (8.5-10.1)
[2022-11-19 07:30] LABS: BLOOD UREA NITROGEN 12.6 mg/dL (7-18); MAGNESIUM 2.1 mg/dL (1.8-2.4)
[2022-11-19 07:32] LABS: PHOSPHOROUS 2.5 mg/dL (2.5-4.9)
[2022-11-19 07:33] LABS: CREATININE 0.7 mg/dL (0.55-1.3)
[2022-11-19 07:34] LABS: BILIRUBIN,TOTAL 0.8 mg/dL (0.2-1); TOT PROT 6.2 g/dl (6.4-8.2)
[2022-11-19] MEDS: PANTOPRAZOLE SODIUM 40 MG VIAL IVPUSH SCH (09:23)
[2022-11-19] MEDS: ENOXAPARIN NA (PORCINE) 60 MG/0.6 ML DISP.SYRIN SQ SCH ×2 (09:23→21:30)
[2022-11-19] MEDS: BISOPROLOL PO SCH (09:30)
[2022-11-19] MEDS: MUPIROCIN 2% TOPICAL OINTMENT FOR DECOLONIZATION NS SCH ×2 (09:30→21:30)
[2022-11-19] MEDS: HYDROCHLOROTHIAZIDE PO SCH (09:30)
[2022-11-19 09:42] LABS: ERYTHROCYTE SEDIMENTATION RATE 38 mm/hr (0-30)
[2022-11-19 10:38] LABS: N-TERMINAL BNP 4425.3 pg/ml (5-450)
[2022-11-19] MEDS: VALPROATE SODIUM INJECTION 500 MG in DEXTROSE 5%-WATER - 100 ML IVPB SCH ×2 (10:50→21:48)
[2022-11-19 14:46] VITALS: BMI 18.3
[2022-11-19] MEDS: CHLORHEXIDINE GLUCONATE 4% CLEANSER FOR DECOLONIZATION TP SCH (21:30)
[2022-11-20] MEDS: ACYCLOVIR INJECTION 500 MG in DEXTROSE 5%-WATER - 100 ML IVPB SCH ×3 (01:24→19:41)
[2022-11-20] MEDS ORDERED: dilTIAZem HCL 25 MG/5 ML - 5 ML VIAL ONE (02:35)
[2022-11-20] MEDS: PIPERACILLIN/TAZOB 3.375 GM 3.375 GM in DEXTROSE 5%-WATER - 50 ML IVPB SCH ×2 (02:59→09:43)
[2022-11-20 07:28] LABS: HEMATOCRIT 35.4 % (32.4-45.2); HEMOGLOBIN 12.1 GM/dL (10.7-15.3); MCH 31.2 pg (25.7-33.7); MEAN CELL VOLUME 91.7 fl (80-96); MEAN PLT VOLUME 7.6 fl (7.5-11.1); PLATELET COUNT 188 10^3/uL (134-434); RBC 3.87 M/mm3 (3.60-5.2); RDW 14.5 % (11.6-15.6); WHITE BLOOD COUNT 6.5 K/mm3 (4.0-10.0)
[2022-11-20 07:48] LABS: BLOOD UREA NITROGEN 11.5 mg/dL (7-18); MAGNESIUM 1.7 mg/dL (1.8-2.4)
[2022-11-20 07:51] LABS: CREATININE 0.7 mg/dL (0.55-1.3); PHOSPHOROUS 2.2 mg/dL (2.5-4.9)
[2022-11-20] MEDS: HYDROCHLOROTHIAZIDE PO SCH (09:42)
[2022-11-20] MEDS: BISOPROLOL PO SCH (09:42)
[2022-11-20] MEDS: MUPIROCIN 2% TOPICAL OINTMENT FOR DECOLONIZATION NS SCH ×2 (09:42→22:17)
[2022-11-20] MEDS: ENOXAPARIN NA (PORCINE) 60 MG/0.6 ML DISP.SYRIN SQ SCH (09:42)
[2022-11-20] MEDS: PANTOPRAZOLE SODIUM 40 MG VIAL IVPUSH SCH (10:05)
[2022-11-20] MEDS: dilTIAZem HCL 30 MG TABLET PO SCH ×4 (10:18→23:03)
[2022-11-20] MEDS: POLYETHYLENE GLYCOL (HEALTHYLAX) 3350 17 GM PACKET PO SCH ×2 (10:18→22:20)
[2022-11-20] MEDS: VALPROATE SODIUM INJECTION 500 MG in DEXTROSE 5%-WATER - 100 ML IVPB SCH ×2 (12:00→22:17)
[2022-11-20] MEDS ORDERED: MAGNESIUM 1GM/D5W 100ML - 100 ML IVPB IVPB ONE (15:25)
[2022-11-20] MEDS ORDERED: SODIUM PHOSPHATE - 0 MM in SODIUM CHLORIDE 250 ML IVPB ONE (15:25)
[2022-11-20] MEDS ORDERED: SODIUM PHOSPHATE - 30 MM in SODIUM CHLORIDE 250 ML IVPB ONE (15:40)
[2022-11-20] MEDS ORDERED: SODIUM PHOSPHATE - 15 MM in SODIUM CHLORIDE 250 ML IVPB ONE (15:46)
[2022-11-20] MEDS: D5-1/2NS+20 MEQ KCL - 20 MEQ/1,000 ML INFUS.BAG IV SCH (16:30)
[2022-11-20] MEDS ORDERED: METOPROLOL TARTRATE 5 MG/5 ML VIAL IVPUSH ONE (20:04)
[2022-11-20] MEDS ORDERED: ENOXAPARIN NA (PORCINE) 60 MG/0.6 ML DISP.SYRIN SQ SCH (22:00)
[2022-11-20] MEDS: CHLORHEXIDINE GLUCONATE 4% CLEANSER FOR DECOLONIZATION TP SCH (22:18)
[2022-11-20] MEDS ORDERED: D5-1/2NS+20 MEQ KCL - 20 MEQ/1,000 ML INFUS.BAG IV SCH (23:45)
[2022-11-21] MEDS: dilTIAZem HCL 30 MG TABLET PO SCH ×3 (00:19→12:33)
[2022-11-21] MEDS: METOPROLOL TARTRATE 5 MG/5 ML VIAL IVPUSH PRN ×3 (01:00→23:08)
[2022-11-21] MEDS: ACYCLOVIR INJECTION 500 MG in DEXTROSE 5%-WATER - 100 ML IVPB SCH ×3 (01:00→17:39)
[2022-11-21] MEDS: POLYETHYLENE GLYCOL (HEALTHYLAX) 3350 17 GM PACKET PO SCH ×2 (09:21→21:54)
[2022-11-21] MEDS: PANTOPRAZOLE SODIUM 40 MG VIAL IVPUSH SCH (09:21)
[2022-11-21] MEDS: ENOXAPARIN NA (PORCINE) 60 MG/0.6 ML DISP.SYRIN SQ SCH ×2 (09:21→21:53)
[2022-11-21] MEDS ORDERED: dilTIAZem HCL 50 MG/10 ML - 10 ML VIAL IVPUSH ONE (10:00)
[2022-11-21] MEDS ORDERED: AMINO ACIDS 4.25%/D5W 1,000 ML IV SCH (10:00)
[2022-11-21] MEDS: METOPROLOL TARTRATE 50 MG TABLET (FP) PO SCH ×2 (10:48→21:53)
[2022-11-21 10:57] LABS: BASO % 0.5 % (0-2.0); EOS % 0.4 % (0-4.5); HEMATOCRIT 32.9 % (32.4-45.2); HEMOGLOBIN 11.5 GM/dL (10.7-15.3); LYMPH % 11.1 % (8-40); MCH 32.1 pg (25.7-33.7); MEAN CELL VOLUME 91.7 fl (80-96); MEAN PLT VOLUME 7.4 fl (7.5-11.1); MONO % 25.4 % (3.8-10.2); NEUT % 62.6 % (42.8-82.8); PLATELET COUNT 189 10^3/uL (134-434); RBC 3.59 M/mm3 (3.60-5.2); RDW 14.3 % (11.6-15.6); WHITE BLOOD COUNT 5.3 K/mm3 (4.0-10.0)
[2022-11-21 11:22] LABS: CALCIUM 8.1 mg/dL (8.5-10.1)
[2022-11-21 11:23] LABS: BLOOD UREA NITROGEN 7.2 mg/dL (7-18); MAGNESIUM 1.8 mg/dL (1.8-2.4)
[2022-11-21 11:26] LABS: CREATININE 0.5 mg/dL (0.55-1.3); PHOSPHOROUS 2.9 mg/dL (2.5-4.9)
[2022-11-21 11:27] LABS: BILIRUBIN,TOTAL 0.5 mg/dL (0.2-1)
[2022-11-21 11:48] LABS: ALBUMIN 2.1 g/dl (3.4-5.0)
[2022-11-21 13:02] LABS: ANISOCYTOSIS 2+; MACROCYTOSIS 0; OVALOCYTE 2+; TEAR DROP CELLS 1+; TOXIC GRANULATION 2+
[2022-11-21] MEDS: VALPROATE SODIUM INJECTION 500 MG in DEXTROSE 5%-WATER - 100 ML IVPB SCH ×2 (13:10→21:54)
[2022-11-21] MEDS ORDERED: POTASSIUM CHLORIDE ORAL LIQUID 20 MEQ/15 ML PO ONE (13:19)
[2022-11-21] MEDS ORDERED: ACETAMINOPHEN 325 MG TABLET (FP) PO PRN (14:23)
[2022-11-21] MEDS: POTASSIUM CHLORIDE 20 MEQ in AMINO ACIDS 4.25%/D5W 1,000 ML IV SCH (15:39)
[2022-11-21] MEDS: LIDOCAINE PATCH REMOVAL MC SCH (22:58)
[2022-11-22] MEDS: METOPROLOL TARTRATE 5 MG/5 ML VIAL IVPUSH PRN ×2 (02:11→18:46)
[2022-11-22] MEDS: ACYCLOVIR INJECTION 500 MG in DEXTROSE 5%-WATER - 100 ML IVPB SCH ×2 (02:11→09:22)
[2022-11-22] MEDS ORDERED: dilTIAZem HCL 50 MG/10 ML - 10 ML VIAL IVPUSH ONE (03:21)
[2022-11-22 08:29] LABS: HEMATOCRIT 36.5 % (32.4-45.2); HEMOGLOBIN 12.3 GM/dL (10.7-15.3); MCH 31.9 pg (25.7-33.7); MCHC 33.8 g/dl (32.0-36.0); MEAN CELL VOLUME 94.2 fl (80-96); MEAN PLT VOLUME 7.9 fl (7.5-11.1); PLATELET COUNT 211 10^3/uL (134-434); RBC 3.87 M/mm3 (3.60-5.2); RDW 14.3 % (11.6-15.6); WHITE BLOOD COUNT 6.4 K/mm3 (4.0-10.0)
[2022-11-22] MEDS: METOPROLOL TARTRATE 50 MG TABLET (FP) PO SCH ×3 (08:47→21:26)
[2022-11-22] MEDS: ENOXAPARIN NA (PORCINE) 60 MG/0.6 ML DISP.SYRIN SQ SCH ×2 (09:09→21:28)
[2022-11-22] MEDS: PANTOPRAZOLE SODIUM 40 MG VIAL IVPUSH SCH (09:09)
[2022-11-22] MEDS: POLYETHYLENE GLYCOL (HEALTHYLAX) 3350 17 GM PACKET PO SCH ×2 (09:10→21:28)
[2022-11-22 09:14] LABS: ALBUMIN 2.1 g/dl (3.4-5.0); BLOOD UREA NITROGEN 17.6 mg/dL (7-18); CALCIUM 8.2 mg/dL (8.5-10.1); MAGNESIUM 1.7 mg/dL (1.8-2.4)
[2022-11-22 09:17] LABS: CREATININE 0.8 mg/dL (0.55-1.3); PHOSPHOROUS 3.2 mg/dL (2.5-4.9)
[2022-11-22 09:19] LABS: BILIRUBIN,TOTAL 0.7 mg/dL (0.2-1); TOT PROT 5.2 g/dl (6.4-8.2)
[2022-11-22 09:26] LABS: ANISOCYTOSIS 0; HELMET CELLS 0; HOWELL-JOLLY BODIES 0; MACROCYTOSIS 0; OVALOCYTE 0; ROULEAU 0; SICKELED CELLS 0; TARGET CELLS 0; TEAR DROP CELLS 0; TOXIC GRANULATION 0
[2022-11-22] MEDS: LIDOCAINE 5% TOPICAL PATCH TP SCH ×2 (10:08→11:22)
[2022-11-22] MEDS ORDERED: MAGNESIUM OXIDE 400 MG TABLET (FP) PO ONE (11:02)
[2022-11-22] MEDS: VALPROATE SODIUM INJECTION 500 MG in DEXTROSE 5%-WATER - 100 ML IVPB SCH ×2 (12:09→21:31)
[2022-11-22] MEDS: POTASSIUM CHLORIDE 20 MEQ in AMINO ACIDS 4.25%/D5W 1,000 ML IV SCH (13:37)
[2022-11-22] MEDS ORDERED: ACYCLOVIR INJECTION 500 MG in DEXTROSE 5%-WATER - 100 ML IVPB SCH (18:00)
[2022-11-22] MEDS: LIDOCAINE PATCH REMOVAL MC SCH (21:29)
[2022-11-23] MEDS: METOPROLOL TARTRATE 5 MG/5 ML VIAL IVPUSH PRN (03:37)
[2022-11-23] MEDS: METOPROLOL TARTRATE 50 MG TABLET (FP) PO SCH ×3 (08:01→22:04)
[2022-11-23] MEDS: ENOXAPARIN NA (PORCINE) 60 MG/0.6 ML DISP.SYRIN SQ SCH ×2 (09:22→22:04)
[2022-11-23] MEDS: POLYETHYLENE GLYCOL (HEALTHYLAX) 3350 17 GM PACKET PO SCH ×2 (09:22→22:04)
[2022-11-23] MEDS: LIDOCAINE 5% TOPICAL PATCH TP SCH (09:23)
[2022-11-23] MEDS: PANTOPRAZOLE SODIUM 40 MG VIAL IVPUSH SCH (09:24)
[2022-11-23] MEDS: VALPROATE SODIUM INJECTION 500 MG in DEXTROSE 5%-WATER - 100 ML IVPB SCH ×2 (10:34→22:03)
[2022-11-23] MEDS: POTASSIUM CHLORIDE 20 MEQ in AMINO ACIDS 4.25%/D5W 1,000 ML IV SCH ×2 (13:31→16:10)
[2022-11-23] MEDS: LIDOCAINE PATCH REMOVAL MC SCH (22:04)
[2022-11-24 09:21] LABS: CALCIUM 8.1 mg/dL (8.5-10.1)
[2022-11-24 09:22] LABS: ALBUMIN 2.2 g/dl (3.4-5.0); BLOOD UREA NITROGEN 36.6 mg/dL (7-18); MAGNESIUM 1.9 mg/dL (1.8-2.4)
[2022-11-24 09:25] LABS: CREATININE 0.8 mg/dL (0.55-1.3)
[2022-11-24] MEDS: POLYETHYLENE GLYCOL (HEALTHYLAX) 3350 17 GM PACKET PO SCH ×2 (09:26→22:00)
[2022-11-24] MEDS: ENOXAPARIN NA (PORCINE) 60 MG/0.6 ML DISP.SYRIN SQ SCH ×2 (09:26→21:59)
[2022-11-24 09:27] LABS: BILIRUBIN,TOTAL 0.4 mg/dL (0.2-1); TOT PROT 5.4 g/dl (6.4-8.2)
[2022-11-24] MEDS: PANTOPRAZOLE SODIUM 40 MG VIAL IVPUSH SCH (09:27)
[2022-11-24] MEDS: METOPROLOL TARTRATE 50 MG TABLET (FP) PO SCH (09:27)
[2022-11-24] MEDS: LIDOCAINE 5% TOPICAL PATCH TP SCH (11:24)
[2022-11-24] MEDS: VALPROATE SODIUM INJECTION 500 MG in DEXTROSE 5%-WATER - 100 ML IVPB SCH ×2 (11:25→22:00)
[2022-11-24] MEDS: POTASSIUM CHLORIDE 20 MEQ in AMINO ACIDS 4.25%/D5W 1,000 ML IV SCH (14:40)
[2022-11-24] MEDS ORDERED: D5-1/2NS+20 MEQ KCL - 20 MEQ/1,000 ML INFUS.BAG IV SCH (15:45)
[2022-11-24] MEDS ORDERED: METOPROLOL TARTRATE 50 MG TABLET (FP) PO SCH (22:00)
[2022-11-24] MEDS: LIDOCAINE PATCH REMOVAL MC SCH (22:00)
[2022-11-25] MEDS: METOPROLOL TARTRATE 5 MG/5 ML VIAL IVPUSH PRN ×2 (00:47→21:25)
[2022-11-25 08:29] LABS: HEMATOCRIT 35.3 % (32.4-45.2); HEMOGLOBIN 12.3 GM/dL (10.7-15.3); MCH 31.9 pg (25.7-33.7); MCHC 34.9 g/dl (32.0-36.0); MEAN CELL VOLUME 91.4 fl (80-96); MEAN PLT VOLUME 7.2 fl (7.5-11.1); PLATELET COUNT 212 10^3/uL (134-434); RBC 3.86 M/mm3 (3.60-5.2); RDW 14.4 % (11.6-15.6); WHITE BLOOD COUNT 4.7 K/mm3 (4.0-10.0)
[2022-11-25 08:47] LABS: CALCIUM 8.4 mg/dL (8.5-10.1)
[2022-11-25 08:48] LABS: MAGNESIUM 1.8 mg/dL (1.8-2.4)
[2022-11-25 08:50] LABS: ALBUMIN 2.3 g/dl (3.4-5.0); BLOOD UREA NITROGEN 29.9 mg/dL (7-18)
[2022-11-25 08:52] LABS: BILIRUBIN,DIRECT 0.1 mg/dL (0.0-0.2); CREATININE 0.8 mg/dL (0.55-1.3)
[2022-11-25 08:53] LABS: TOT PROT 5.6 g/dl (6.4-8.2)
[2022-11-25 08:54] LABS: BILIRUBIN,TOTAL 0.4 mg/dL (0.2-1)
[2022-11-25 09:00] LABS: ANISOCYTOSIS 0; MACROCYTOSIS 0
[2022-11-25] MEDS: ENOXAPARIN NA (PORCINE) 60 MG/0.6 ML DISP.SYRIN SQ SCH (09:05)
[2022-11-25] MEDS: PANTOPRAZOLE SODIUM 40 MG VIAL IVPUSH SCH (09:05)
[2022-11-25] MEDS: LIDOCAINE 5% TOPICAL PATCH TP SCH (09:06)
[2022-11-25] MEDS: POLYETHYLENE GLYCOL (HEALTHYLAX) 3350 17 GM PACKET PO SCH ×2 (09:06→21:30)
[2022-11-25] MEDS ORDERED: METOPROLOL TARTRATE 50 MG TABLET (FP) PO SCH (10:00)
[2022-11-25] MEDS: VALPROATE SODIUM INJECTION 500 MG in DEXTROSE 5%-WATER - 100 ML IVPB SCH ×2 (10:58→21:30)
[2022-11-25] MEDS: APIXABAN 2.5 MG TABLET PO SCH (21:30)
[2022-11-25] MEDS: METOPROLOL TARTRATE 50 MG TABLET (FP) PO SCH (21:30)
[2022-11-25] MEDS: LIDOCAINE PATCH REMOVAL MC SCH (21:31)
[2022-11-26 07:39] LABS: HEMATOCRIT 37.5 % (32.4-45.2); HEMOGLOBIN 13.1 GM/dL (10.7-15.3); MCH 32.3 pg (25.7-33.7); MCHC 34.9 g/dl (32.0-36.0); MEAN CELL VOLUME 92.5 fl (80-96); MEAN PLT VOLUME 7.1 fl (7.5-11.1); PLATELET COUNT 202 10^3/uL (134-434); RBC 4.05 M/mm3 (3.60-5.2); RDW 14.4 % (11.6-15.6); WHITE BLOOD COUNT 4.6 K/mm3 (4.0-10.0)
[2022-11-26 07:58] LABS: BLOOD UREA NITROGEN 28.5 mg/dL (7-18); CALCIUM 8.3 mg/dL (8.5-10.1)
[2022-11-26 08:01] LABS: CREATININE 0.9 mg/dL (0.55-1.3)
[2022-11-26] MEDS: PANTOPRAZOLE SODIUM 40 MG VIAL IVPUSH SCH (09:04)
[2022-11-26] MEDS: METOPROLOL TARTRATE 50 MG TABLET (FP) PO SCH ×2 (09:04→21:53)
[2022-11-26] MEDS: LIDOCAINE 5% TOPICAL PATCH TP SCH (09:04)
[2022-11-26] MEDS: APIXABAN 2.5 MG TABLET PO SCH ×2 (09:04→21:54)
[2022-11-26] MEDS: POLYETHYLENE GLYCOL (HEALTHYLAX) 3350 17 GM PACKET PO SCH ×3 (09:05→23:07)
[2022-11-26 09:15] LABS: ANISOCYTOSIS 0; HELMET CELLS 0; HOWELL-JOLLY BODIES 0; MACROCYTOSIS 0; OVALOCYTE 0; ROULEAU 0; SICKELED CELLS 0; TARGET CELLS 0; TEAR DROP CELLS 0; TOXIC GRANULATION 0
[2022-11-26] MEDS: VALPROATE SODIUM INJECTION 500 MG in DEXTROSE 5%-WATER - 100 ML IVPB SCH ×2 (10:05→21:59)
[2022-11-26] MEDS: LIDOCAINE PATCH REMOVAL MC SCH (21:54)
[2022-11-27] MEDS: METOPROLOL TARTRATE 50 MG TABLET (FP) PO SCH ×2 (09:17→21:58)
[2022-11-27] MEDS: APIXABAN 2.5 MG TABLET PO SCH ×2 (09:17→21:58)
[2022-11-27] MEDS: VALPROATE SODIUM INJECTION 500 MG in DEXTROSE 5%-WATER - 100 ML IVPB SCH ×2 (09:17→21:58)
[2022-11-27] MEDS: LIDOCAINE 5% TOPICAL PATCH TP SCH (09:18)
[2022-11-27] MEDS: PANTOPRAZOLE SODIUM 40 MG VIAL IVPUSH SCH (09:18)
[2022-11-27] MEDS: POLYETHYLENE GLYCOL (HEALTHYLAX) 3350 17 GM PACKET PO SCH ×2 (09:18→21:59)
[2022-11-27] MEDS: LIDOCAINE PATCH REMOVAL MC SCH (22:03)
[2022-11-28 08:22] LABS: HEMATOCRIT 32.2 % (32.4-45.2); HEMOGLOBIN 11.3 GM/dL (10.7-15.3); MCH 32.4 pg (25.7-33.7); MEAN CELL VOLUME 92.7 fl (80-96); MEAN PLT VOLUME 6.9 fl (7.5-11.1); PLATELET COUNT 154 10^3/uL (134-434); RBC 3.48 M/mm3 (3.60-5.2); RDW 14.6 % (11.6-15.6); WHITE BLOOD COUNT 4.1 K/mm3 (4.0-10.0)
[2022-11-28 08:41] LABS: ALBUMIN 2.4 g/dl (3.4-5.0); CALCIUM 8.2 mg/dL (8.5-10.1)
[2022-11-28 08:42] LABS: BLOOD UREA NITROGEN 30.4 mg/dL (7-18)
[2022-11-28 08:44] LABS: CREATININE 0.8 mg/dL (0.55-1.3)
[2022-11-28 08:46] LABS: BILIRUBIN,TOTAL 0.5 mg/dL (0.2-1); TOT PROT 5.7 g/dl (6.4-8.2)
[2022-11-28] MEDS: APIXABAN 2.5 MG TABLET PO SCH ×2 (11:45→21:11)
[2022-11-28] MEDS: PANTOPRAZOLE SODIUM 40 MG VIAL IVPUSH SCH (11:45)
[2022-11-28] MEDS: POLYETHYLENE GLYCOL (HEALTHYLAX) 3350 17 GM PACKET PO SCH ×2 (11:45→21:11)
[2022-11-28] MEDS: METOPROLOL TARTRATE 50 MG TABLET (FP) PO SCH ×2 (11:45→21:11)
[2022-11-28] MEDS: LIDOCAINE 5% TOPICAL PATCH TP SCH (11:46)
[2022-11-28] MEDS: VALPROATE SODIUM INJECTION 500 MG in DEXTROSE 5%-WATER - 100 ML IVPB SCH ×2 (11:48→21:11)
[2022-11-28 18:39] LABS: EPI CELLS 5 /uL (0-25.1); HYALINE CASTS 0 /uL (0-3.1); URINE APPEARANCE CLEAR; URINE BACTERIA 4 /uL (0-1359); URINE BILIRUBIN NEGATIVE (NEGATIVE); URINE COLOR YELLOW; URINE GLUCOSE (UA) NEGATIVE (NEGATIVE); URINE KETONE NEGATIVE (NEGATIVE); URINE LEUK ESTERASE NEGATIVE (NEGATIVE); URINE NITRITE NEGATIVE (NEGATIVE); URINE PROTEIN TRACE (NEGATIVE); URINE RBC 68 /uL (0-23.9); URINE WBC 5 /uL (0-25.8)
[2022-11-28] MEDS: LIDOCAINE PATCH REMOVAL MC SCH (21:12)
[2022-11-29 01:37] VITALS: RESP 18
[2022-11-29 07:14] LABS: BLOOD UREA NITROGEN 29.6 mg/dL (7-18); CALCIUM 8.4 mg/dL (8.5-10.1); MAGNESIUM 1.9 mg/dL (1.8-2.4)
[2022-11-29 07:17] LABS: CREATININE 0.9 mg/dL (0.55-1.3); PHOSPHOROUS 3.6 mg/dL (2.5-4.9)
[2022-11-29] MEDS: LIDOCAINE 5% TOPICAL PATCH TP SCH (09:55)
[2022-11-29] MEDS: APIXABAN 2.5 MG TABLET PO SCH (09:56)
[2022-11-29] MEDS: POLYETHYLENE GLYCOL (HEALTHYLAX) 3350 17 GM PACKET PO SCH (09:56)
[2022-11-29] MEDS: PANTOPRAZOLE SODIUM 40 MG VIAL IVPUSH SCH (09:56)
[2022-11-29] MEDS: METOPROLOL TARTRATE 50 MG TABLET (FP) PO SCH (09:57)
[2022-11-29] MEDS: VALPROATE SODIUM INJECTION 500 MG in DEXTROSE 5%-WATER - 100 ML IVPB SCH (11:44)
[2022-11-29 14:21] VITALS: BP 148/77; PULSE 60; TEMP 98.2
== END 2022-11-29 17:19 | DRG 100 ==
LOC: JER 16:26 → JERBED 20:33 → INTOOBSV 20:33 → UNDOADMOB 20:33 → JERBED 11-16 13:46 → J5S 11-16 13:46 → OBSVTOIN 11-17 10:53 → JICU 11-18 18:57 → J4S 11-20 15:18
PROVIDERS: ADMIT Internal Medicine; ATTEND Internal Medicine
PROC: 009U3ZX Drainage of Spinal Canal, Percutaneous Approach, Diagnostic (ICD-10-PCS; principal; 2022-11-16)
DX: G40.909 Epilepsy, unspecified, not intractable, without status epilepticus (principal); G93.41 Metabolic encephalopathy; E87.1 Hypo-osmolality and hyponatremia; K21.9 Gastro-esophageal reflux disease without esophagitis; G43.909 Migraine, unspecified, not intractable, without status migrainosus; E87.6 Hypokalemia; R53.1 Weakness; F03.90 Unspecified dementia, unspecified severity, without behavioral disturbance, psychotic disturbance, mood disturbance, and anxiety; I48.0 Paroxysmal atrial fibrillation; R26.81 Unsteadiness on feet; I11.0 Hypertensive heart disease with heart failure; I50.9 Heart failure, unspecified; I16.0 Hypertensive urgency
CPT/HCPCS: 36415; 70450-TC; 70551-TC; 71045-TC-FY; 72141-TC; 73502-TC-RT-FY; 73552-TC-RT-FY; 80048; 80053; 80061; 80076; 80164; 80307; 81003; 82140; 82436; 82533; 82550; 82803; 82945; 82962; 83036; 83735; 83880; 83930; 83935; 84100; 84133; 84157; 84300; 84443; 84484; 85025; 85027; 85610; 85651; 85730; 86140; 86618; 86850; 86900; 86901; 87040; 87070; 87086; 87205; 87254; 87529; 87799; 87804; 87807; 87899; 93005; 93010; 93306-TC; 95816; 97116-GP; 97161-GP; 99285-25; C9803-CS; G0378; U0003; U0005

== ENCOUNTER 2023-02-20 04:57 | Inpatient (IN) | payer OTHER ==
[2023-02-20] MEDS ORDERED: ACETAMINOPHEN 1000 MG/100 ML BAG IVPB ONE ×2 (05:13→14:37)
[2023-02-20] MEDS ORDERED: ACETAMINOPHEN INJECTION 100 ML IVPB ONE ×2 (05:38→15:05)
[2023-02-20 06:34] LABS: HEMATOCRIT 32.1 % (32.4-45.2); MCH 35.5 pg (25.7-33.7); MCHC 34.1 g/dl (32.0-36.0); MEAN CELL VOLUME 104.1 fl (80-96); MEAN PLT VOLUME 8.2 fl (7.5-11.1); PLATELET COUNT 153 10^3/uL (134-434); RBC 3.09 M/mm3 (3.60-5.2); RDW 13.5 % (11.6-15.6); WHITE BLOOD COUNT 6.5 K/mm3 (4.0-10.0)
[2023-02-20 06:41] LABS: INR 1.04 (0.83-1.09); PROTHROMBIN TIME (PATIENT) 12.1 SEC (9.7-13.0)
[2023-02-20 06:44] LABS: ACTIVATED PTT 27.2 SECONDS (25.2-36.5)
[2023-02-20 06:48] LABS: POTASSIUM 4.4 mmol/L (3.5-5.1)
[2023-02-20 06:50] LABS: CALCIUM 8.8 mg/dL (8.5-10.1)
[2023-02-20 06:51] LABS: ALBUMIN 3.1 g/dl (3.4-5.0); BLOOD UREA NITROGEN 16.8 mg/dL (7-18); MAGNESIUM 1.9 mg/dL (1.8-2.4)
[2023-02-20 06:54] LABS: CREATININE 0.8 mg/dL (0.55-1.3)
[2023-02-20 06:55] LABS: TOT PROT 6.3 g/dl (6.4-8.2)
[2023-02-20 06:56] LABS: BILIRUBIN,TOTAL 0.4 mg/dL (0.2-1)
[2023-02-20 07:02] LABS: EPI CELLS 5 /uL (0-25.1); HYALINE CASTS 0 /uL (0-3.1); URINE APPEARANCE CLEAR; URINE BACTERIA 68 /uL (0-1359); URINE BILIRUBIN NEGATIVE (NEGATIVE); URINE COLOR YELLOW; URINE GLUCOSE (UA) NEGATIVE (NEGATIVE); URINE KETONE NEGATIVE (NEGATIVE); URINE LEUK ESTERASE TRACE (NEGATIVE); URINE NITRITE NEGATIVE (NEGATIVE); URINE PROTEIN NEGATIVE (NEGATIVE); URINE RBC 14 /uL (0-23.9); URINE WBC 9 /uL (0-25.8)
[2023-02-20 08:57] LABS: ANISOCYTOSIS 2+; MACROCYTOSIS 2+
[2023-02-20] MEDS ORDERED: ACETAMINOPHEN 1000 MG/100 ML BAG IVPB PRN ×2 (09:08→09:34)
[2023-02-20] MEDS ORDERED: LACTATED RINGERS SOLUTION 1,000 ML/1,000 ML INFUS.BAG IV SCH ×2 (09:30→15:20)
[2023-02-20] MEDS ORDERED: KETOROLAC TROMETHAMINE 15 MG/ML VIAL IVPUSH PRN (09:38)
[2023-02-20 12:44] VITALS: BMI 17.8
[2023-02-20] MEDS ORDERED: LIDOCAINE HCL/PF 2% SDV 5ML VIAL ONE (12:51)
[2023-02-20] MEDS ORDERED: PROPOFOL 20 ML ONE (12:51)
[2023-02-20] MEDS ORDERED: MIDAZOLAM HCL 2 MG/2 ML SINGLE DOSE VIAL ONE (12:51)
[2023-02-20] MEDS ORDERED: ceFAZolin SODIUM 1 GM VIAL IVPB ONE (13:40)
[2023-02-20] MEDS ORDERED: DEXAMETHASONE SOD PHOSPHATE 4 MG/1 ML VIAL ONE (13:46)
[2023-02-20] MEDS ORDERED: ceFAZolin SODIUM 1 GM VIAL ONE (13:46)
[2023-02-20] MEDS ORDERED: ONDANSETRON 4 MG/2 ML VIAL ONE (14:11)
[2023-02-20] MEDS ORDERED: ONDANSETRON 4 MG/2 ML VIAL IVPUSH PRN (14:36)
[2023-02-20] MEDS ORDERED: PROMETHAZINE HCL 25 MG/1 ML VIAL IVPB PRN (14:36)
[2023-02-20] MEDS ORDERED: KETOROLAC TROMETHAMINE 15 MG/ML VIAL IVPUSH ONE (14:37)
[2023-02-20] MEDS ORDERED: LACTATED RINGERS SOLUTION 1,000 ML IV SCH (14:45)
[2023-02-20] MEDS ORDERED: KETOROLAC TROMETHAMINE 30 MG/1 ML VIAL ONE (15:22)
[2023-02-20] MEDS ORDERED: CEFAZOLIN 1 GM in DEXTROSE 5%-WATER - 50 ML IVPB SCH (18:00)
[2023-02-20] MEDS ORDERED: CEFAZOLIN SODIUM 2 GM in DEXTROSE 5%-WATER 100 ML IVPB SCH (21:00)
[2023-02-20] MEDS: QUEtiapine FUMARATE 25 MG TABLET PO SCH (21:52)
[2023-02-20] MEDS: CEFAZOLIN SODIUM 2 GM in DEXTROSE 5%-WATER 100 ML IVPB SCH (21:52)
[2023-02-20] MEDS: DIVALPROEX SODIUM 250 MG TABLET E.C. PO SCH (21:52)
[2023-02-20] MEDS ORDERED: DIVALPROEX SODIUM 250 MG TABLET E.C. PO SCH (22:00)
[2023-02-20] MEDS ORDERED: QUEtiapine FUMARATE 25 MG TABLET PO SCH (22:00)
[2023-02-21] MEDS: CEFAZOLIN SODIUM 2 GM in DEXTROSE 5%-WATER 100 ML IVPB SCH (01:51)
[2023-02-21 08:49] LABS: HEMATOCRIT 20.4 % (32.4-45.2); MCH 34.4 pg (25.7-33.7); MCHC 33.2 g/dl (32.0-36.0); MEAN CELL VOLUME 103.5 fl (80-96); MEAN PLT VOLUME 8.8 fl (7.5-11.1); PLATELET COUNT 118 10^3/uL (134-434); RBC 1.97 M/mm3 (3.60-5.2); RDW 13.1 % (11.6-15.6); WHITE BLOOD COUNT 8.5 K/mm3 (4.0-10.0)
[2023-02-21 09:10] LABS: POTASSIUM 4.6 mmol/L (3.5-5.1)
[2023-02-21 09:12] LABS: CALCIUM 8.2 mg/dL (8.5-10.1)
[2023-02-21 09:13] LABS: ALBUMIN 2.6 g/dl (3.4-5.0); BLOOD UREA NITROGEN 25.4 mg/dL (7-18); MAGNESIUM 1.7 mg/dL (1.8-2.4)
[2023-02-21 09:16] LABS: CREATININE 1.5 mg/dL (0.55-1.3); PHOSPHOROUS 5.5 mg/dL (2.5-4.9)
[2023-02-21 09:17] LABS: BILIRUBIN,TOTAL 0.6 mg/dL (0.2-1); TOT PROT 5.2 g/dl (6.4-8.2)
[2023-02-21 09:20] LABS: HEMOGLOBIN 6.8 GM/dL (10.7-15.3)
[2023-02-21] MEDS ORDERED: PANTOPRAZOLE 20 MG TABLET PO SCH ×3 (10:00→16:07)
[2023-02-21] MEDS ORDERED: ENOXAPARIN NA (PORCINE) 40 MG/0.4 ML DISP.SYRIN SQ SCH ×2 (10:00)
[2023-02-21] MEDS ORDERED: MAGNESIUM 2GM/50ML STERILE WATER IVPB IVPB ONE (10:00)
[2023-02-21] MEDS: LACTATED RINGERS SOLUTION 1,000 ML IV SCH ×2 (10:00→22:57)
[2023-02-21] MEDS: DIVALPROEX SODIUM 250 MG TABLET E.C. PO SCH ×2 (10:00→22:57)
[2023-02-21] MEDS: ACETAMINOPHEN 1000 MG/100 ML BAG IVPB PRN (10:01)
[2023-02-21 11:36] LABS: HEMATOCRIT 18.9 % (32.4-45.2); MCH 35.4 pg (25.7-33.7); MEAN CELL VOLUME 104.3 fl (80-96); MEAN PLT VOLUME 8.7 fl (7.5-11.1); PLATELET COUNT 112 10^3/uL (134-434); RBC 1.82 M/mm3 (3.60-5.2); RDW 13.4 % (11.6-15.6); WHITE BLOOD COUNT 8.2 K/mm3 (4.0-10.0)
[2023-02-21 11:58] LABS: HEMOGLOBIN 6.4 GM/dL (10.7-15.3)
[2023-02-21 11:59] LABS: POTASSIUM 4.8 mmol/L (3.5-5.1)
[2023-02-21 12:01] LABS: CALCIUM 7.9 mg/dL (8.5-10.1)
[2023-02-21 12:02] LABS: ALBUMIN 2.5 g/dl (3.4-5.0); BLOOD UREA NITROGEN 24.7 mg/dL (7-18)
[2023-02-21 12:05] LABS: CREATININE 1.7 mg/dL (0.55-1.3)
[2023-02-21 12:06] LABS: TOT PROT 5.1 g/dl (6.4-8.2)
[2023-02-21 12:07] LABS: BILIRUBIN,TOTAL 0.3 mg/dL (0.2-1)
[2023-02-21 12:28] LABS: ANISOCYTOSIS 3+; MACROCYTOSIS 0
[2023-02-21] MEDS ORDERED: DONEPEZIL HCL 5 MG TABLET (FP) PO SCH (22:00)
[2023-02-21] MEDS: DONEPEZIL HCL 5 MG TABLET (FP) PO SCH (22:57)
[2023-02-21] MEDS: QUEtiapine FUMARATE 25 MG TABLET PO SCH (22:57)
[2023-02-21 23:31] LABS: HEMATOCRIT 23.6 % (32.4-45.2); HEMOGLOBIN 8.1 GM/dL (10.7-15.3); MCH 33.2 pg (25.7-33.7); MCHC 34.3 g/dl (32.0-36.0); MEAN CELL VOLUME 96.6 fl (80-96); MEAN PLT VOLUME 8.6 fl (7.5-11.1); PLATELET COUNT 97 10^3/uL (134-434); RBC 2.44 M/mm3 (3.60-5.2); RDW 15.9 % (11.6-15.6); WHITE BLOOD COUNT 9.4 K/mm3 (4.0-10.0)
[2023-02-22 09:56] LABS: HEMATOCRIT 20.8 % (32.4-45.2); HEMOGLOBIN 7.4 GM/dL (10.7-15.3); MCH 34.7 pg (25.7-33.7); MCHC 35.6 g/dl (32.0-36.0); MEAN CELL VOLUME 97.5 fl (80-96); MEAN PLT VOLUME 8.5 fl (7.5-11.1); PLATELET COUNT 89 10^3/uL (134-434); RBC 2.14 M/mm3 (3.60-5.2); RDW 16.1 % (11.6-15.6); WHITE BLOOD COUNT 6.5 K/mm3 (4.0-10.0)
[2023-02-22 10:00] LABS: POTASSIUM 4.3 mmol/L (3.5-5.1)
[2023-02-22 10:04] LABS: BLOOD UREA NITROGEN 32.5 mg/dL (7-18); CALCIUM 7.7 mg/dL (8.5-10.1); MAGNESIUM 2.3 mg/dL (1.8-2.4)
[2023-02-22 10:05] LABS: ALBUMIN 2.2 g/dl (3.4-5.0)
[2023-02-22 10:07] LABS: PHOSPHOROUS 3.8 mg/dL (2.5-4.9)
[2023-02-22 10:08] LABS: CREATININE 1.1 mg/dL (0.55-1.3)
[2023-02-22 10:09] LABS: BILIRUBIN,TOTAL 0.5 mg/dL (0.2-1); TOT PROT 4.6 g/dl (6.4-8.2)
[2023-02-22] MEDS: PANTOPRAZOLE 20 MG TABLET PO SCH (10:13)
[2023-02-22] MEDS: DIVALPROEX SODIUM 250 MG TABLET E.C. PO SCH ×2 (10:13→23:01)
[2023-02-22] MEDS: ACETAMINOPHEN 1000 MG/100 ML BAG IVPB PRN (10:13)
[2023-02-22] MEDS: LACTATED RINGERS SOLUTION 1,000 ML IV SCH (10:15)
[2023-02-22] MEDS ORDERED: traMADol HCL 50 MG TABLET PO PRN (10:17)
[2023-02-22 15:13] LABS: HEMATOCRIT 20.9 % (32.4-45.2); HEMOGLOBIN 7.1 GM/dL (10.7-15.3); MCH 33.8 pg (25.7-33.7); MCHC 34.2 g/dl (32.0-36.0); MEAN PLT VOLUME 9.2 fl (7.5-11.1); PLATELET COUNT 100 10^3/uL (134-434); RBC 2.11 M/mm3 (3.60-5.2); RDW 16.1 % (11.6-15.6); WHITE BLOOD COUNT 6.9 K/mm3 (4.0-10.0)
[2023-02-22] MEDS ORDERED: IRON SUCROSE INJECTION 100 MG in SODIUM CHLORIDE 95 ML IVPB ONE (19:30)
[2023-02-22 20:10] LABS: ANISOCYTOSIS 1+; MACROCYTOSIS 0; OVALOCYTE 1+
[2023-02-22] MEDS: QUEtiapine FUMARATE 25 MG TABLET PO SCH (22:52)
[2023-02-22] MEDS: DONEPEZIL HCL 5 MG TABLET (FP) PO SCH (22:52)
[2023-02-23 09:51] LABS: HEMATOCRIT 21.9 % (32.4-45.2); HEMOGLOBIN 7.7 GM/dL (10.7-15.3); MCHC 35.1 g/dl (32.0-36.0); MEAN CELL VOLUME 99.7 fl (80-96); MEAN PLT VOLUME 8.3 fl (7.5-11.1); PLATELET COUNT 105 10^3/uL (134-434); RDW 15.9 % (11.6-15.6); WHITE BLOOD COUNT 6.3 K/mm3 (4.0-10.0)
[2023-02-23] MEDS: DIVALPROEX SODIUM 250 MG TABLET E.C. PO SCH ×2 (10:00→23:04)
[2023-02-23] MEDS: PANTOPRAZOLE 20 MG TABLET PO SCH (10:00)
[2023-02-23 10:24] LABS: BLOOD UREA NITROGEN 24.7 mg/dL (7-18)
[2023-02-23 10:27] LABS: CREATININE 0.7 mg/dL (0.55-1.3)
[2023-02-23] MEDS ORDERED: IRON SUCROSE INJECTION 100 MG in SODIUM CHLORIDE 95 ML IVPB ONE (12:00)
[2023-02-23] MEDS: DONEPEZIL HCL 5 MG TABLET (FP) PO SCH (23:04)
[2023-02-23] MEDS: QUEtiapine FUMARATE 25 MG TABLET PO SCH (23:04)
[2023-02-24] MEDS: DIVALPROEX SODIUM 250 MG TABLET E.C. PO SCH ×2 (09:44→21:56)
[2023-02-24] MEDS: ACETAMINOPHEN 325 MG TABLET (FP) PO PRN (09:45)
[2023-02-24] MEDS: PANTOPRAZOLE 20 MG TABLET PO SCH (09:46)
[2023-02-24 21:48] LABS: HEMATOCRIT 21.9 % (32.4-45.2); HEMOGLOBIN 7.5 GM/dL (10.7-15.3); MCH 34.2 pg (25.7-33.7); MCHC 34.2 g/dl (32.0-36.0); MEAN CELL VOLUME 99.9 fl (80-96); MEAN PLT VOLUME 8.2 fl (7.5-11.1); PLATELET COUNT 144 10^3/uL (134-434); RBC 2.19 M/mm3 (3.60-5.2); RDW 14.9 % (11.6-15.6); WHITE BLOOD COUNT 5.9 K/mm3 (4.0-10.0)
[2023-02-24] MEDS: QUEtiapine FUMARATE 25 MG TABLET PO SCH (21:56)
[2023-02-24] MEDS: DONEPEZIL HCL 5 MG TABLET (FP) PO SCH (21:56)
[2023-02-24 22:08] LABS: POTASSIUM 3.9 mmol/L (3.5-5.1)
[2023-02-24 22:09] LABS: CALCIUM 7.6 mg/dL (8.5-10.1)
[2023-02-24 22:10] LABS: BLOOD UREA NITROGEN 17.2 mg/dL (7-18)
[2023-02-24 22:13] LABS: CREATININE 0.6 mg/dL (0.55-1.3)
[2023-02-24 22:27] LABS: ANISOCYTOSIS 0; MACROCYTOSIS 0
[2023-02-25] MEDS: ACETAMINOPHEN 325 MG TABLET (FP) PO PRN ×2 (09:12→17:54)
[2023-02-25] MEDS: DIVALPROEX SODIUM 250 MG TABLET E.C. PO SCH ×2 (09:14→21:45)
[2023-02-25] MEDS: PANTOPRAZOLE 20 MG TABLET PO SCH (09:14)
[2023-02-25] MEDS ORDERED: IRON SUCROSE INJECTION 100 MG in SODIUM CHLORIDE 95 ML IVPB ONE (09:30)
[2023-02-25] MEDS: QUEtiapine FUMARATE 25 MG TABLET PO SCH (21:45)
[2023-02-25] MEDS: DONEPEZIL HCL 5 MG TABLET (FP) PO SCH (21:45)
[2023-02-26] MEDS: ACETAMINOPHEN 325 MG TABLET (FP) PO PRN ×2 (09:04→22:02)
[2023-02-26] MEDS: PANTOPRAZOLE 20 MG TABLET PO SCH (09:04)
[2023-02-26] MEDS: DIVALPROEX SODIUM 250 MG TABLET E.C. PO SCH ×2 (09:04→22:02)
[2023-02-26 09:27] LABS: HEMOGLOBIN 7.5 GM/dL (10.7-15.3); MCH 34.8 pg (25.7-33.7); MCHC 34.3 g/dl (32.0-36.0); MEAN CELL VOLUME 101.5 fl (80-96); MEAN PLT VOLUME 7.7 fl (7.5-11.1); PLATELET COUNT 182 10^3/uL (134-434); RBC 2.16 M/mm3 (3.60-5.2); RDW 14.5 % (11.6-15.6); WHITE BLOOD COUNT 4.6 K/mm3 (4.0-10.0)
[2023-02-26 10:06] LABS: ANISOCYTOSIS 2+; MACROCYTOSIS 2+
[2023-02-26] MEDS: FERROUS SO4 325 MG TABLET (FP) PO SCH (11:37)
[2023-02-26] MEDS: DONEPEZIL HCL 5 MG TABLET (FP) PO SCH (22:03)
[2023-02-26] MEDS: QUEtiapine FUMARATE 25 MG TABLET PO SCH (22:03)
[2023-02-27] MEDS: PANTOPRAZOLE 20 MG TABLET PO SCH (10:04)
[2023-02-27] MEDS: DIVALPROEX SODIUM 250 MG TABLET E.C. PO SCH ×2 (10:05→23:07)
[2023-02-27] MEDS: FERROUS SO4 325 MG TABLET (FP) PO SCH (10:07)
[2023-02-27] MEDS: DONEPEZIL HCL 5 MG TABLET (FP) PO SCH (23:07)
[2023-02-27] MEDS: QUEtiapine FUMARATE 25 MG TABLET PO SCH (23:08)
[2023-02-28 03:42] VITALS: RESP 18
[2023-02-28] MEDS: PANTOPRAZOLE 20 MG TABLET PO SCH (09:17)
[2023-02-28] MEDS: DIVALPROEX SODIUM 250 MG TABLET E.C. PO SCH (09:17)
[2023-02-28] MEDS: FERROUS SO4 325 MG TABLET (FP) PO SCH (09:17)
[2023-02-28 11:30] VITALS: BP 147/89; PULSE 94; TEMP 98.3
== END 2023-02-28 11:55 | DRG 481 ==
LOC: JER 04:57 → JERBED 06:18 → J6S 10:50
PROVIDERS: ADMIT Internal Medicine; ATTEND Internal Medicine
PROC: 0QS604Z Reposition Right Upper Femur with Internal Fixation Device, Open Approach (ICD-10-PCS; principal; 2023-02-20 13:00)
PROC: 30233N1 Transfusion of Nonautologous Red Blood Cells into Peripheral Vein, Percutaneous Approach (ICD-10-PCS; 2023-02-21)
DX: S72.141A Displaced intertrochanteric fracture of right femur, initial encounter for closed fracture (principal); D62 Acute posthemorrhagic anemia; F03.90 Unspecified dementia, unspecified severity, without behavioral disturbance, psychotic disturbance, mood disturbance, and anxiety; I10 Essential (primary) hypertension; G43.809 Other migraine, not intractable, without status migrainosus; K21.9 Gastro-esophageal reflux disease without esophagitis; D69.6 Thrombocytopenia, unspecified; E78.5 Hyperlipidemia, unspecified; W18.39XA Other fall on same level, initial encounter; Y92.091 Bathroom in other non-institutional residence as the place of occurrence of the external cause
CPT/HCPCS: 0241U-QW; 36415; 36430; 70450-TC; 71045-TC-FY; 72125-TC; 72170-TC-FY; 72192-TC; 73552-TC-RT-FY; 74176-TC; 76000-TC-FY; 80048; 80053; 81003; 82272; 82607; 82746; 83735; 84100; 84484; 85025; 85027; 85610; 85730; 86022; 86850; 86900; 86901; 86922; 87086; 93005; 93010; 94010; 94760; 97116-GP; 97162-GP; 99285-25; C1713; J1756; P9058

== ENCOUNTER 2023-06-21 18:41 | Inpatient (IN) | payer OTHER ==
[2023-06-21 19:50] LABS: BASO % 0.3 % (0-2.0); EOS % 0.2 % (0-4.5); HEMATOCRIT 36.6 % (32.4-45.2); HEMOGLOBIN 12.8 GM/dL (10.7-15.3); LYMPH % 17.1 % (8-40); MCH 33.9 pg (25.7-33.7); MCHC 34.9 g/dl (32.0-36.0); MEAN CELL VOLUME 97.1 fl (80-96); MEAN PLT VOLUME 8.2 fl (7.5-11.1); MONO % 16.5 % (3.8-10.2); NEUT % 65.9 % (42.8-82.8); PLATELET COUNT 234 10^3/uL (134-434); RBC 3.77 M/mm3 (3.60-5.2); WHITE BLOOD COUNT 7.4 K/mm3 (4.0-10.0)
[2023-06-21] MEDS ORDERED: LORazepam 2 MG/ML SDV VIAL IVPUSH ONE ×2 (19:57→20:35)
[2023-06-21 20:10] LABS: CALCIUM 9.5 mg/dL (8.5-10.1)
[2023-06-21 20:11] LABS: ACTIVATED PTT 30.8 SECONDS (25.2-36.5); PROTHROMBIN TIME (PATIENT) 11.6 SEC (9.7-13.0)
[2023-06-21 20:12] LABS: ALBUMIN 3.8 g/dl (3.4-5.0)
[2023-06-21 20:13] LABS: BLOOD UREA NITROGEN 22.6 mg/dL (7-18)
[2023-06-21 20:15] LABS: CREATININE 1.1 mg/dL (0.55-1.3); TOT PROT 7.6 g/dl (6.4-8.2)
[2023-06-21 20:16] LABS: BILIRUBIN,TOTAL 0.9 mg/dL (0.2-1)
[2023-06-21] MEDS ORDERED: LABETALOL HCL 20 MG/4 ML VIAL ONE (21:02)
[2023-06-21] MEDS ORDERED: LABETALOL HCL 5 MG/1 ML (100MG/20 ML VIAL) IVPUSH ONE (21:14)
[2023-06-21 21:29] LABS: MAGNESIUM 1.9 mg/dL (1.8-2.4)
[2023-06-21 22:14] LABS: URINE APPEARANCE CLOUDY; URINE BILIRUBIN NEGATIVE (NEGATIVE); URINE COLOR YELLOW; URINE GLUCOSE (UA) NEGATIVE (NEGATIVE); URINE KETONE TRACE (NEGATIVE); URINE LEUK ESTERASE 1+ (NEGATIVE); URINE NITRITE NEGATIVE (NEGATIVE); URINE PROTEIN 1+ (NEGATIVE); URINE UROBILINOGEN 0.2 mg/dL (0.2-1.0)
[2023-06-21 22:39] LABS: EPI CELLS 10.8 /uL (0-25.1); HYALINE CASTS 0.29 /uL (0-3.1); URINE RBC 46.9 /uL (0-23.9)
[2023-06-21 22:40] LABS: URINE CRYSTALS NEGATIVE /hpf; YEAST NEGATIVE (NEGATIVE)
[2023-06-21] MEDS ORDERED: LABETALOL HCL 5 MG/1 ML (100MG/20 ML VIAL) IVPUSH PRN (23:08)
[2023-06-22] MEDS: SODIUM CHLORIDE 1,000 ML IV SCH (00:48)
[2023-06-22 08:39] LABS: POTASSIUM 4.8 mmol/L (3.5-5.1)
[2023-06-22 08:51] LABS: CALCIUM 8.7 mg/dL (8.5-10.1)
[2023-06-22 08:52] LABS: ALBUMIN 3.7 g/dl (3.4-5.0); BLOOD UREA NITROGEN 13.6 mg/dL (7-18); CREATININE 0.7 mg/dL (0.55-1.3)
[2023-06-22 08:54] LABS: TOT PROT 7.9 g/dl (6.4-8.2)
[2023-06-22 08:56] LABS: PHOSPHOROUS 3.4 mg/dL (2.5-4.9)
[2023-06-22 08:58] LABS: BILIRUBIN,TOTAL 1.1 mg/dL (0.2-1)
[2023-06-22 09:01] LABS: HEMATOCRIT 54.5 % (32.4-45.2); HEMOGLOBIN 19.1 GM/dL (10.7-15.3); MCH 33.4 pg (25.7-33.7); MEAN CELL VOLUME 95.5 fl (80-96); MEAN PLT VOLUME 8.8 fl (7.5-11.1); PLATELET COUNT 135 10^3/uL (134-434); RBC 5.71 M/mm3 (3.60-5.2); RDW 15.1 % (11.6-15.6); WHITE BLOOD COUNT 6.9 K/mm3 (4.0-10.0)
[2023-06-22] MEDS ORDERED: METOPROLOL TARTRATE 50 MG TABLET (FP) PO SCH (10:00)
[2023-06-22] MEDS: CEFTRIAXONE 1 GM in DEXTROSE 5%-WATER - 50 ML IVPB SCH (10:33)
[2023-06-22] MEDS: FAMOTIDINE 20 MG TABLET PO SCH (10:34)
[2023-06-22] MEDS: LOSARTAN POTASSIUM 50 MG TABLET PO SCH (10:34)
[2023-06-22] MEDS: FERROUS SO4 325 MG TABLET (FP) PO SCH (10:34)
[2023-06-22] MEDS: METOPROLOL TARTRATE 25 MG TABLET (FP) PO SCH ×2 (10:34→21:43)
[2023-06-22] MEDS: DONEPEZIL HCL 5 MG TABLET (FP) PO SCH (21:43)
[2023-06-22] MEDS ORDERED: QUEtiapine FUMARATE 25 MG TABLET PO SCH (22:00)
[2023-06-22] MEDS: VALPROATE SODIUM 250 MG/5 ML UNIT DOSE CUP PO SCH (22:04)
[2023-06-23] MEDS: CEFTRIAXONE 1 GM in DEXTROSE 5%-WATER - 50 ML IVPB SCH (09:57)
[2023-06-23] MEDS: FERROUS SO4 325 MG TABLET (FP) PO SCH (09:59)
[2023-06-23] MEDS: VALPROATE SODIUM 250 MG/5 ML UNIT DOSE CUP PO SCH (09:59)
[2023-06-23] MEDS: FAMOTIDINE 20 MG TABLET PO SCH (09:59)
[2023-06-23] MEDS: LOSARTAN POTASSIUM 50 MG TABLET PO SCH (09:59)
[2023-06-23] MEDS: METOPROLOL TARTRATE 25 MG TABLET (FP) PO SCH (09:59)
[2023-06-23] MEDS ORDERED: LOSARTAN POTASSIUM 25 MG TABLET PO SCH (14:42)
[2023-06-23 16:39] LABS: HEMATOCRIT 34.1 % (32.4-45.2); HEMOGLOBIN 11.9 GM/dL (10.7-15.3); MCHC 34.9 g/dl (32.0-36.0); MEAN CELL VOLUME 97.3 fl (80-96); PLATELET COUNT 150 10^3/uL (134-434); RDW 14.5 % (11.6-15.6); WHITE BLOOD COUNT 9.4 K/mm3 (4.0-10.0)
[2023-06-23 16:55] LABS: MAGNESIUM 1.9 mg/dL (1.8-2.4)
[2023-06-23 16:58] LABS: PHOSPHOROUS 3.2 mg/dL (2.5-4.9)
[2023-06-23] MEDS: QUEtiapine FUMARATE 25 MG TABLET PO SCH (21:37)
[2023-06-23] MEDS: DIVALPROEX NA *ER* EXTEND REL 250 MG TABLET.SA PO SCH (21:37)
[2023-06-23] MEDS: DONEPEZIL HCL 5 MG TABLET (FP) PO SCH (21:37)
[2023-06-23] MEDS: HEPARIN NA (PORCINE) 5,000 UNITS/ML 1ML VIAL SQ SCH (21:37)
[2023-06-23] MEDS: SODIUM CHLORIDE 1,000 ML IV SCH (22:00)
[2023-06-24] MEDS: ACETAMINOPHEN 325 MG TABLET (FP) PO PRN ×2 (03:28→21:51)
[2023-06-24] MEDS: HEPARIN NA (PORCINE) 5,000 UNITS/ML 1ML VIAL SQ SCH ×3 (05:39→21:33)
[2023-06-24] MEDS ORDERED: ADENOSINE 6 MG/2 ML VIAL IVPUSH ONE (06:31)
[2023-06-24] MEDS ORDERED: dilTIAZem HCL 50 MG/10 ML - 10 ML VIAL IVPUSH ONE (06:33)
[2023-06-24] MEDS ORDERED: METOPROLOL TARTRATE 25 MG TABLET (FP) PO SCH (06:43)
[2023-06-24 09:05] LABS: POTASSIUM 3.4 mmol/L (3.5-5.1)
[2023-06-24 09:07] LABS: CALCIUM 7.8 mg/dL (8.5-10.1)
[2023-06-24 09:09] LABS: BLOOD UREA NITROGEN 24.8 mg/dL (7-18)
[2023-06-24 09:11] LABS: CREATININE 0.9 mg/dL (0.55-1.3)
[2023-06-24 09:13] LABS: BILIRUBIN,TOTAL 0.8 mg/dL (0.2-1)
[2023-06-24 09:17] LABS: ALBUMIN 2.7 g/dl (3.4-5.0); TOT PROT 5.8 g/dl (6.4-8.2)
[2023-06-24] MEDS: FERROUS SO4 325 MG TABLET (FP) PO SCH (09:39)
[2023-06-24] MEDS: CEFTRIAXONE 1 GM in DEXTROSE 5%-WATER - 50 ML IVPB SCH (09:39)
[2023-06-24] MEDS: FAMOTIDINE 20 MG TABLET PO SCH (09:40)
[2023-06-24] MEDS ORDERED: metoPROLOL SUCCINATE 25 MG TAB.SR.24H (FP) PO SCH (10:00)
[2023-06-24] MEDS: METOPROLOL TARTRATE 25 MG TABLET (FP) PO SCH ×2 (14:09→21:34)
[2023-06-24] MEDS: KCL 10 MEQ IVPB 10 MEQ/100 ML INFUS.BAG IVPB SCH ×3 (14:09→16:10)
[2023-06-24] MEDS ORDERED: LACTATED RINGERS SOLUTION 1000 ML INFUS.BAG IV ONE (14:15)
[2023-06-24] MEDS: QUEtiapine FUMARATE 25 MG TABLET PO SCH (21:33)
[2023-06-24] MEDS: DIVALPROEX NA *ER* EXTEND REL 250 MG TABLET.SA PO SCH (21:33)
[2023-06-24] MEDS: DONEPEZIL HCL 5 MG TABLET (FP) PO SCH (21:34)
[2023-06-24] MEDS ORDERED: LACTATED RINGERS SOLUTION 1,000 ML/1,000 ML INFUS.BAG IV STA (23:41)
[2023-06-25] MEDS: HEPARIN NA (PORCINE) 5,000 UNITS/ML 1ML VIAL SQ SCH ×3 (06:13→22:12)
[2023-06-25] MEDS: METOPROLOL TARTRATE 25 MG TABLET (FP) PO SCH ×3 (06:28→22:08)
[2023-06-25] MEDS ORDERED: METOPROLOL TARTRATE 25 MG TABLET (FP) PO ONE (07:41)
[2023-06-25 07:49] LABS: HEMATOCRIT 30.4 % (32.4-45.2); HEMOGLOBIN 10.7 GM/dL (10.7-15.3); MCH 34.1 pg (25.7-33.7); MCHC 35.2 g/dl (32.0-36.0); MEAN CELL VOLUME 97.1 fl (80-96); MEAN PLT VOLUME 8.1 fl (7.5-11.1); PLATELET COUNT 138 10^3/uL (134-434); RBC 3.13 M/mm3 (3.60-5.2); RDW 14.4 % (11.6-15.6); WHITE BLOOD COUNT 5.2 K/mm3 (4.0-10.0)
[2023-06-25 08:16] LABS: POTASSIUM 3.7 mmol/L (3.5-5.1)
[2023-06-25 08:20] LABS: BLOOD UREA NITROGEN 19.8 mg/dL (7-18); MAGNESIUM 1.6 mg/dL (1.8-2.4)
[2023-06-25 08:23] LABS: CREATININE 0.5 mg/dL (0.55-1.3); PHOSPHOROUS 2.4 mg/dL (2.5-4.9)
[2023-06-25] MEDS: FAMOTIDINE 20 MG TABLET PO SCH (10:45)
[2023-06-25] MEDS: FERROUS SO4 325 MG TABLET (FP) PO SCH (10:45)
[2023-06-25] MEDS ORDERED: METOPROLOL TARTRATE 5 MG/5 ML VIAL IVPUSH PRN (13:07)
[2023-06-25] MEDS ORDERED: METOPROLOL TARTRATE 5 MG/5 ML VIAL IVPUSH ONE (13:30)
[2023-06-25] MEDS ORDERED: dilTIAZem HCL 30 MG TABLET PO ONE (17:00)
[2023-06-25] MEDS: DIVALPROEX NA *ER* EXTEND REL 250 MG TABLET.SA PO SCH (22:11)
[2023-06-25] MEDS: QUEtiapine FUMARATE 25 MG TABLET PO SCH (22:11)
[2023-06-25] MEDS: DONEPEZIL HCL 5 MG TABLET (FP) PO SCH (22:11)
[2023-06-26] MEDS: METOPROLOL TARTRATE 25 MG TABLET (FP) PO SCH ×4 (05:58→21:57)
[2023-06-26] MEDS: HEPARIN NA (PORCINE) 5,000 UNITS/ML 1ML VIAL SQ SCH ×3 (05:59→21:46)
[2023-06-26 06:55] LABS: HEMATOCRIT 31.1 % (32.4-45.2); HEMOGLOBIN 10.5 GM/dL (10.7-15.3); MCH 33.6 pg (25.7-33.7); MCHC 33.7 g/dl (32.0-36.0); MEAN CELL VOLUME 99.9 fl (80-96); MEAN PLT VOLUME 7.9 fl (7.5-11.1); PLATELET COUNT 174 10^3/uL (134-434); RBC 3.12 M/mm3 (3.60-5.2); RDW 14.3 % (11.6-15.6); WHITE BLOOD COUNT 3.5 K/mm3 (4.0-10.0)
[2023-06-26 07:09] LABS: POTASSIUM 3.9 mmol/L (3.5-5.1)
[2023-06-26 07:16] LABS: BLOOD UREA NITROGEN 22.9 mg/dL (7-18)
[2023-06-26 07:17] LABS: ALBUMIN 2.2 g/dl (3.4-5.0); CALCIUM 8.1 mg/dL (8.5-10.1)
[2023-06-26 07:19] LABS: CREATININE 0.6 mg/dL (0.55-1.3)
[2023-06-26 07:21] LABS: BILIRUBIN,TOTAL 0.6 mg/dL (0.2-1); TOT PROT 5.2 g/dl (6.4-8.2)
[2023-06-26] MEDS ORDERED: MAGNESIUM SULF 50% (8.12 MEQ/2 ML-1 GM VIAL) IVPB ONE (09:00)
[2023-06-26] MEDS: FERROUS SO4 325 MG TABLET (FP) PO SCH (09:34)
[2023-06-26] MEDS: FAMOTIDINE 20 MG TABLET PO SCH (09:34)
[2023-06-26] MEDS ORDERED: POTASSIUM PHOSPHATE 15 MM in SODIUM CHLORIDE 250 ML IVPB ONE (10:00)
[2023-06-26] MEDS: CEFUROXIME AXETIL 500 MG TABLET PO SCH ×2 (10:51→23:44)
[2023-06-26 11:54] LABS: ANISOCYTOSIS 0; MACROCYTOSIS 0; PLATELET ESTIMATE NORMAL
[2023-06-26 19:23] VITALS: RESP 18
[2023-06-26] MEDS: QUEtiapine FUMARATE 25 MG TABLET PO SCH (21:44)
[2023-06-26] MEDS: DONEPEZIL HCL 5 MG TABLET (FP) PO SCH (21:44)
[2023-06-26] MEDS: DIVALPROEX NA *ER* EXTEND REL 250 MG TABLET.SA PO SCH (21:46)
[2023-06-27] MEDS: HEPARIN NA (PORCINE) 5,000 UNITS/ML 1ML VIAL SQ SCH (06:56)
[2023-06-27 07:08] LABS: HEMATOCRIT 31.5 % (32.4-45.2); HEMOGLOBIN 10.8 GM/dL (10.7-15.3); MCH 34.1 pg (25.7-33.7); MCHC 34.2 g/dl (32.0-36.0); MEAN CELL VOLUME 99.6 fl (80-96); MEAN PLT VOLUME 8.4 fl (7.5-11.1); PLATELET COUNT 211 10^3/uL (134-434); RBC 3.17 M/mm3 (3.60-5.2); RDW 14.2 % (11.6-15.6); WHITE BLOOD COUNT 3.6 K/mm3 (4.0-10.0)
[2023-06-27 07:23] LABS: POTASSIUM 3.8 mmol/L (3.5-5.1)
[2023-06-27 07:28] LABS: ALBUMIN 2.4 g/dl (3.4-5.0); BLOOD UREA NITROGEN 12.4 mg/dL (7-18); CALCIUM 7.9 mg/dL (8.5-10.1); MAGNESIUM 1.8 mg/dL (1.8-2.4)
[2023-06-27 07:31] LABS: CREATININE 0.5 mg/dL (0.55-1.3)
[2023-06-27 07:32] LABS: BILIRUBIN,TOTAL 0.7 mg/dL (0.2-1); TOT PROT 5.6 g/dl (6.4-8.2)
[2023-06-27] MEDS: FERROUS SO4 325 MG TABLET (FP) PO SCH (09:38)
[2023-06-27] MEDS: FAMOTIDINE 20 MG TABLET PO SCH (09:38)
[2023-06-27] MEDS: CEFUROXIME AXETIL 500 MG TABLET PO SCH (09:39)
[2023-06-27 09:42] VITALS: BP 150/94; PULSE 73; TEMP 98.8
[2023-06-27] MEDS ORDERED: ASPIRIN COATED 81 MG TABLET.EC PO SCH (10:00)
[2023-06-27 10:22] LABS: ANISOCYTOSIS 1+; MACROCYTOSIS 1+
[2023-06-27] MEDS ORDERED: ROSUVASTATIN CA 20 MG TABLET PO SCH (22:00)
[2023-06-28 11:27] VITALS: BMI 17.6
== END 2023-06-27 12:03 | DRG 689 ==
LOC: JER 18:41 → JERBED 21:25 → J4W 06-22 00:14
PROVIDERS: ADMIT Internal Medicine; ATTEND Internal Medicine
DX: N39.0 Urinary tract infection, site not specified (principal); E43 Unspecified severe protein-calorie malnutrition; G93.41 Metabolic encephalopathy; I16.1 Hypertensive emergency; Z68.1 Body mass index [BMI] 19.9 or less, adult; I47.10 Supraventricular tachycardia, unspecified; R64 Cachexia; E78.5 Hyperlipidemia, unspecified; I48.91 Unspecified atrial fibrillation; K21.9 Gastro-esophageal reflux disease without esophagitis; F03.90 Unspecified dementia, unspecified severity, without behavioral disturbance, psychotic disturbance, mood disturbance, and anxiety; R56.9 Unspecified convulsions; J44.9 Chronic obstructive pulmonary disease, unspecified; D50.9 Iron deficiency anemia, unspecified
CPT/HCPCS: 0241U-QW; 36415; 70450-TC; 70496-TC; 70498-TC; 70551-TC; 71045-TC-FY; 80048; 80053; 80061; 80164; 81003; 82140; 82550; 82962; 83036; 83735; 83880; 84100; 84439; 84443; 84484; 85025; 85027; 85610; 85730; 86850; 86900; 86901; 87040; 87086; 87186; 93005; 93010; 93306-TC; 93880-TC; 95816; 97116-GP; 97162-GP; 99285-25; J1644; Q9967

== ENCOUNTER 2023-11-06 18:18 | Inpatient (IN) | payer OTHER, MEDICARE ==
[2023-11-06] MEDS ORDERED: HALOPERIDOL LACTATE 5 MG/ML ONE (19:53)
[2023-11-06] MEDS: HALOPERIDOL LACTATE 5 MG/ML IM ONE (19:58)
[2023-11-06 20:13] LABS: HEMOGLOBIN 11.9 GM/dL (10.7-15.3); MCH 34.3 pg (25.7-33.7); MEAN PLT VOLUME 8.1 fl (7.5-11.1); PLATELET COUNT 134 10^3/uL (134-434); RBC 3.47 M/mm3 (3.60-5.2); RDW 13.8 % (11.6-15.6); WHITE BLOOD COUNT 4.8 K/mm3 (4.0-10.0)
[2023-11-06 20:14] LABS: INR 1.04 (0.83-1.09); PROTHROMBIN TIME (PATIENT) 12.1 SEC (9.7-13.0)
[2023-11-06 20:17] LABS: ACTIVATED PTT 27.2 SECONDS (25.2-36.5)
[2023-11-06 20:18] LABS: POTASSIUM 4.2 mmol/L (3.5-5.1)
[2023-11-06 20:20] LABS: CALCIUM 8.7 mg/dL (8.5-10.1)
[2023-11-06 20:21] LABS: ALBUMIN 3.2 g/dl (3.4-5.0); BLOOD UREA NITROGEN 14.1 mg/dL (7-18)
[2023-11-06 20:24] LABS: CREATININE 0.8 mg/dL (0.55-1.3)
[2023-11-06 20:25] LABS: TOT PROT 6.7 g/dl (6.4-8.2)
[2023-11-06 20:26] LABS: BILIRUBIN,TOTAL 0.7 mg/dL (0.2-1)
[2023-11-06] MEDS ORDERED: QUEtiapine FUMARATE 25 MG TABLET ONE (21:30)
[2023-11-06 21:35] LABS: ANISOCYTOSIS 0; MACROCYTOSIS 0
[2023-11-06] MEDS: QUEtiapine FUMARATE 50 MG TABLET PO ONE (21:35)
[2023-11-07 00:02] LABS: EPI CELLS 5 /uL (0-25.1); HYALINE CASTS 0 /uL (0-3.1); URINE APPEARANCE CLEAR; URINE BACTERIA 37 /uL (0-1359); URINE BILIRUBIN NEGATIVE (NEGATIVE); URINE COLOR YELLOW; URINE GLUCOSE (UA) NEGATIVE (NEGATIVE); URINE KETONE NEGATIVE (NEGATIVE); URINE LEUK ESTERASE 3+ (NEGATIVE); URINE NITRITE NEGATIVE (NEGATIVE); URINE PROTEIN NEGATIVE (NEGATIVE); URINE RBC 12 /uL (0-23.9); URINE UROBILINOGEN 0.2 mg/dL (0.2-1.0); URINE WBC 8 /uL (0-25.8)
[2023-11-07 06:52] LABS: HEMATOCRIT 41.7 % (32.4-45.2); HEMOGLOBIN 14.4 GM/dL (10.7-15.3); MCH 34.1 pg (25.7-33.7); MCHC 34.6 g/dl (32.0-36.0); MEAN CELL VOLUME 98.7 fl (80-96); MEAN PLT VOLUME 8.2 fl (7.5-11.1); PLATELET COUNT 139 10^3/uL (134-434); RBC 4.23 M/mm3 (3.60-5.2); RDW 13.4 % (11.6-15.6)
[2023-11-07 07:26] LABS: POTASSIUM 3.6 mmol/L (3.5-5.1)
[2023-11-07 07:32] LABS: ALBUMIN 3.5 g/dl (3.4-5.0); CALCIUM 9.4 mg/dL (8.5-10.1)
[2023-11-07 07:33] LABS: BLOOD UREA NITROGEN 10.5 mg/dL (7-18); MAGNESIUM 1.8 mg/dL (1.8-2.4)
[2023-11-07 07:35] LABS: CREATININE 0.7 mg/dL (0.55-1.3)
[2023-11-07 07:36] LABS: PHOSPHOROUS 3.7 mg/dL (2.5-4.9)
[2023-11-07 07:37] LABS: BILIRUBIN,TOTAL 0.8 mg/dL (0.2-1); TOT PROT 7.6 g/dl (6.4-8.2)
[2023-11-07 09:49] LABS: ANISOCYTOSIS 0; MACROCYTOSIS 1+
[2023-11-07] MEDS ORDERED: ASPIRIN COATED 81 MG TABLET.EC ONE (12:03)
[2023-11-07] MEDS ORDERED: ENOXAPARIN NA (PORCINE) 40 MG/0.4 ML DISP.SYRIN SQ ONE (12:04)
[2023-11-07] MEDS ORDERED: FAMOTIDINE 20 MG TABLET ONE (12:04)
[2023-11-07] MEDS: ASPIRIN COATED 81 MG TABLET.EC PO SCH (12:15)
[2023-11-07] MEDS: ENOXAPARIN NA (PORCINE) 40 MG/0.4 ML DISP.SYRIN SQ SCH (12:16)
[2023-11-07] MEDS: FAMOTIDINE 20 MG TABLET PO SCH (12:16)
[2023-11-07] MEDS: DONEPEZIL HCL 5 MG TABLET (FP) PO SCH (21:42)
[2023-11-07] MEDS: DIVALPROEX NA *ER* EXTEND REL 250 MG TABLET.SA PO SCH (21:42)
[2023-11-07] MEDS: ROSUVASTATIN CA 20 MG TABLET PO SCH (21:42)
[2023-11-07] MEDS ORDERED: DIVALPROEX NA *ER* EXTEND REL 250 MG TABLET.SA PO SCH (22:00)
[2023-11-07] MEDS: LORazepam 0.5 MG TABLET PO ONE (22:58)
[2023-11-08 06:39] LABS: POTASSIUM 3.7 mmol/L (3.5-5.1)
[2023-11-08 06:44] LABS: CALCIUM 8.7 mg/dL (8.5-10.1)
[2023-11-08 06:45] LABS: ALBUMIN 3.2 g/dl (3.4-5.0); BLOOD UREA NITROGEN 15.3 mg/dL (7-18); MAGNESIUM 1.6 mg/dL (1.8-2.4)
[2023-11-08 06:49] LABS: TOT PROT 7.2 g/dl (6.4-8.2)
[2023-11-08 06:56] LABS: CREATININE 0.9 mg/dL (0.55-1.3)
[2023-11-08 06:57] LABS: BILIRUBIN,TOTAL 0.9 mg/dL (0.2-1)
[2023-11-08 08:28] LABS: HEMATOCRIT 40.3 % (32.4-45.2); HEMOGLOBIN 14.2 GM/dL (10.7-15.3); MCH 34.8 pg (25.7-33.7); MCHC 35.2 g/dl (32.0-36.0); MEAN CELL VOLUME 98.8 fl (80-96); MEAN PLT VOLUME 8.1 fl (7.5-11.1); PLATELET COUNT 165 10^3/uL (134-434); RBC 4.07 M/mm3 (3.60-5.2); RDW 13.3 % (11.6-15.6); WHITE BLOOD COUNT 4.6 K/mm3 (4.0-10.0)
[2023-11-08 10:13] LABS: ANISOCYTOSIS 1+; MACROCYTOSIS 0
[2023-11-08] MEDS: MAGNESIUM SULF 50% (8.12 MEQ/2 ML-1 GM VIAL) IVPB ONE (12:51)
[2023-11-08] MEDS: SODIUM CHLORIDE 1,000 ML IV SCH (14:00)
[2023-11-09 06:46] LABS: HEMATOCRIT 40.5 % (32.4-45.2); HEMOGLOBIN 13.9 GM/dL (10.7-15.3); MCH 33.8 pg (25.7-33.7); MCHC 34.4 g/dl (32.0-36.0); MEAN CELL VOLUME 98.3 fl (80-96); MEAN PLT VOLUME 8.3 fl (7.5-11.1); PLATELET COUNT 178 10^3/uL (134-434); RBC 4.12 M/mm3 (3.60-5.2); RDW 13.5 % (11.6-15.6); WHITE BLOOD COUNT 13.8 K/mm3 (4.0-10.0)
[2023-11-09 07:02] LABS: CALCIUM 8.5 mg/dL (8.5-10.1)
[2023-11-09 07:03] LABS: ALBUMIN 2.9 g/dl (3.4-5.0); BLOOD UREA NITROGEN 30.9 mg/dL (7-18); MAGNESIUM 1.9 mg/dL (1.8-2.4)
[2023-11-09 07:06] LABS: CREATININE 1.1 mg/dL (0.55-1.3)
[2023-11-09 07:07] LABS: TOT PROT 6.8 g/dl (6.4-8.2)
[2023-11-09 09:00] LABS: ANISOCYTOSIS 0; MACROCYTOSIS 0
[2023-11-09] MEDS: CEFTRIAXONE 1 GM in DEXTROSE 5%-WATER - 50 ML IVPB ONE (10:14)
[2023-11-09 11:29] VITALS: BMI 16.0
[2023-11-09 14:11] LABS: ARTERIAL BLD GAS O2 SATURATION 97.4 % (95-98); ARTERIAL BLOOD GAS BASE EXCESS -0.3 mmol/L (-2-2); ARTERIAL BLOOD GAS PO2 93.7 mmHg (80-100); ARTERIAL BLOOD GAS pH 7.436 (7.350-7.450)
[2023-11-09 14:13] LABS: ALLENS TEST POSITIVE
[2023-11-09] MEDS: AMINO ACIDS 4.25%/D5W 1,000 ML IV SCH (16:57)
[2023-11-10] MEDS: LEVOTHYROXINE NA 50 MCG TABLET (FP) PO SCH (07:56)
[2023-11-10 08:14] LABS: POTASSIUM 4.4 mmol/L (3.5-5.1)
[2023-11-10 08:27] LABS: CALCIUM 8.4 mg/dL (8.5-10.1)
[2023-11-10 08:28] LABS: ALBUMIN 2.7 g/dl (3.4-5.0); BLOOD UREA NITROGEN 43.2 mg/dL (7-18)
[2023-11-10 08:31] LABS: CREATININE 0.9 mg/dL (0.55-1.3)
[2023-11-10 08:33] LABS: TOT PROT 6.5 g/dl (6.4-8.2)
[2023-11-10 09:30] LABS: HEMATOCRIT 38.8 % (32.4-45.2); HEMOGLOBIN 13.3 GM/dL (10.7-15.3); MCH 33.8 pg (25.7-33.7); MCHC 34.3 g/dl (32.0-36.0); MEAN CELL VOLUME 98.4 fl (80-96); MEAN PLT VOLUME 8.3 fl (7.5-11.1); PLATELET COUNT 194 10^3/uL (134-434); RBC 3.94 M/mm3 (3.60-5.2); RDW 13.5 % (11.6-15.6); WHITE BLOOD COUNT 9.9 K/mm3 (4.0-10.0)
[2023-11-10 12:05] LABS: ANISOCYTOSIS 0; HELMET CELLS 0; HOWELL-JOLLY BODIES 0; MACROCYTOSIS 0; OVALOCYTE 0; ROULEAU 0; SICKELED CELLS 0; TARGET CELLS 0; TEAR DROP CELLS 0; TOXIC GRANULATION 0
[2023-11-10] MEDS ORDERED: METOPROLOL TARTRATE 5 MG/5 ML VIAL IVPUSH PRN (16:43)
[2023-11-10] MEDS: ALBUTEROL SO4 2.5/IPRATROPIUM 0.5 INH SOL 3 ML VIAL.NEB. NEB PRN (16:57)
[2023-11-10] MEDS ORDERED: PIPERACILLIN/TAZOB 3.375 GM 3.375 GM in DEXTROSE 5%-WATER - 50 ML IVPB SCH (18:00)
[2023-11-10] MEDS: PIPERACILLIN/TAZOB 3.375 GM 3.375 GM in DEXTROSE 5%-WATER - 50 ML IVPB SCH (18:01)
[2023-11-10] MEDS ORDERED: AMIODARONE IN DEXTROSE,ISO-OSM 360 MG/200 ML BAG ONE (18:38)
[2023-11-10] MEDS: AMIODARONE IN DEXTROSE,ISO-OSM 150 MG/100 ML BAG IVPB ONE (19:00)
[2023-11-10] MEDS: dilTIAZem HCL 50 MG/10 ML - 10 ML VIAL IVPUSH ONE (19:18)
[2023-11-10] MEDS: DIGOXIN 0.5 MG/2 ML AMPUL IVPUSH ONE ×2 (19:19→19:30)
[2023-11-10] MEDS: SODIUM CHLORIDE 1,000 ML IV STA (20:00)
[2023-11-10] MEDS ORDERED: VALPROATE SODIUM 500 MG/5 ML VIAL IVPB SCH (22:00)
[2023-11-10] MEDS: VALPROATE SODIUM INJECTION 500 MG in SODIUM CHLORIDE 100 ML IVPB SCH (22:01)
[2023-11-10] MEDS: SODIUM CHLORIDE 1,000 ML IV SCH (23:45)
[2023-11-11] MEDS: AMIODARONE IN DEXTROSE,ISO-OSM 360 MG/200 ML BAG IV SCH ×2 (01:23)
[2023-11-11] MEDS ORDERED: morphine CARPU-JECT 2 MG/1 ML DISP.SYRIN IVPUSH PRN (06:25)
[2023-11-11] MEDS: DEXTROSE 5%-0.45% SALINE 1,000 ML IV SCH (06:54)
[2023-11-11] MEDS ORDERED: MORPHINE 100 MG/100 ML MG IVPB SCH (08:00)
[2023-11-11] MEDS: SODIUM CHLORIDE 1,000 ML IV SCH (08:06)
[2023-11-11 08:42] LABS: HEMATOCRIT 38.4 % (32.4-45.2); HEMOGLOBIN 12.8 GM/dL (10.7-15.3); MCH 33.4 pg (25.7-33.7); MCHC 33.4 g/dl (32.0-36.0); MEAN CELL VOLUME 100.2 fl (80-96); MEAN PLT VOLUME 8.6 fl (7.5-11.1); PLATELET COUNT 167 10^3/uL (134-434); RBC 3.83 M/mm3 (3.60-5.2); RDW 13.1 % (11.6-15.6); WHITE BLOOD COUNT 5.6 K/mm3 (4.0-10.0)
[2023-11-11 09:05] LABS: POTASSIUM 4.9 mmol/L (3.5-5.1)
[2023-11-11 09:11] LABS: ALBUMIN 2.2 g/dl (3.4-5.0)
[2023-11-11 09:12] LABS: BLOOD UREA NITROGEN 42.3 mg/dL (7-18); CALCIUM 8.2 mg/dL (8.5-10.1)
[2023-11-11 09:15] LABS: CREATININE 0.8 mg/dL (0.55-1.3)
[2023-11-11 09:16] LABS: BILIRUBIN,TOTAL 0.8 mg/dL (0.2-1); TOT PROT 5.7 g/dl (6.4-8.2)
[2023-11-11 09:53] LABS: ANISOCYTOSIS 0; HELMET CELLS 0; HOWELL-JOLLY BODIES 0; MACROCYTOSIS 0; OVALOCYTE 0; ROULEAU 0; SICKELED CELLS 0; TARGET CELLS 0; TEAR DROP CELLS 0; TOXIC GRANULATION 0
[2023-11-11] MEDS: PIPERACILLIN/TAZOB 3.375 GM 3.375 GM in DEXTROSE 5%-WATER - 50 ML IVPB SCH (18:53)
[2023-11-12 09:12] LABS: HEMATOCRIT 31.6 % (32.4-45.2); HEMOGLOBIN 11.2 GM/dL (10.7-15.3); MCH 34.5 pg (25.7-33.7); MCHC 35.3 g/dl (32.0-36.0); MEAN CELL VOLUME 97.6 fl (80-96); MEAN PLT VOLUME 8.3 fl (7.5-11.1); PLATELET COUNT 177 10^3/uL (134-434); RBC 3.24 M/mm3 (3.60-5.2); RDW 13.1 % (11.6-15.6); WHITE BLOOD COUNT 6.3 K/mm3 (4.0-10.0)
[2023-11-12 09:26] LABS: POTASSIUM 3.7 mmol/L (3.5-5.1)
[2023-11-12 09:58] LABS: CALCIUM 7.4 mg/dL (8.5-10.1)
[2023-11-12 09:59] LABS: ALBUMIN 1.9 g/dl (3.4-5.0); BLOOD UREA NITROGEN 38.1 mg/dL (7-18); MAGNESIUM 1.8 mg/dL (1.8-2.4)
[2023-11-12 10:00] LABS: BILIRUBIN,TOTAL 0.7 mg/dL (0.2-1); TOT PROT 5.2 g/dl (6.4-8.2)
[2023-11-12 10:02] LABS: CREATININE 0.7 mg/dL (0.55-1.3)
[2023-11-12 12:39] LABS: ANISOCYTOSIS 0; MACROCYTOSIS 0
[2023-11-13 06:43] LABS: HEMATOCRIT 35.4 % (32.4-45.2); HEMOGLOBIN 12.1 GM/dL (10.7-15.3); MCH 33.8 pg (25.7-33.7); MCHC 34.2 g/dl (32.0-36.0); MEAN CELL VOLUME 98.6 fl (80-96); PLATELET COUNT 200 10^3/uL (134-434); RBC 3.59 M/mm3 (3.60-5.2); WHITE BLOOD COUNT 8.5 K/mm3 (4.0-10.0)
[2023-11-13 06:56] LABS: POTASSIUM 3.6 mmol/L (3.5-5.1)
[2023-11-13 07:12] LABS: ALBUMIN 2.1 g/dl (3.4-5.0); CALCIUM 8.3 mg/dL (8.5-10.1)
[2023-11-13 07:13] LABS: BLOOD UREA NITROGEN 33.6 mg/dL (7-18); MAGNESIUM 1.6 mg/dL (1.8-2.4)
[2023-11-13 07:15] LABS: CREATININE 0.6 mg/dL (0.55-1.3)
[2023-11-13 07:16] LABS: BILIRUBIN,TOTAL 0.8 mg/dL (0.2-1)
[2023-11-13 07:17] LABS: TOT PROT 5.9 g/dl (6.4-8.2)
[2023-11-13] MEDS: MAGNESIUM SULF 50% (8.12 MEQ/2 ML-1 GM VIAL) IVPB ONE (16:52)
[2023-11-13] MEDS: METOPROLOL TARTRATE 5 MG/5 ML VIAL IVPUSH SCH (16:55)
[2023-11-14] MEDS: METOPROLOL TARTRATE 5 MG/5 ML VIAL IVPUSH ONE (01:50)
[2023-11-14 06:46] LABS: HEMATOCRIT 36.5 % (32.4-45.2); HEMOGLOBIN 12.4 GM/dL (10.7-15.3); MCH 33.1 pg (25.7-33.7); MCHC 33.9 g/dl (32.0-36.0); MEAN CELL VOLUME 97.6 fl (80-96); MEAN PLT VOLUME 7.6 fl (7.5-11.1); PLATELET COUNT 219 10^3/uL (134-434); RBC 3.74 M/mm3 (3.60-5.2); RDW 12.9 % (11.6-15.6); WHITE BLOOD COUNT 7.3 K/mm3 (4.0-10.0)
[2023-11-14 06:54] LABS: INR 1.21 (0.83-1.09)
[2023-11-14] MEDS: METOPROLOL TARTRATE 5 MG/5 ML VIAL IVPUSH SCH (07:00)
[2023-11-14 07:03] LABS: POTASSIUM 3.4 mmol/L (3.5-5.1)
[2023-11-14 07:10] LABS: ALBUMIN 1.9 g/dl (3.4-5.0); CALCIUM 7.9 mg/dL (8.5-10.1); MAGNESIUM 1.8 mg/dL (1.8-2.4)
[2023-11-14 07:11] LABS: BLOOD UREA NITROGEN 23.1 mg/dL (7-18)
[2023-11-14 07:13] LABS: CREATININE 0.6 mg/dL (0.55-1.3); PHOSPHOROUS 2.4 mg/dL (2.5-4.9)
[2023-11-14 07:15] LABS: BILIRUBIN,TOTAL 0.9 mg/dL (0.2-1); TOT PROT 5.2 g/dl (6.4-8.2)
[2023-11-14] MEDS ORDERED: METOPROLOL TARTRATE 5 MG/5 ML VIAL IVPUSH PRN (08:57)
[2023-11-14 09:01] LABS: ANISOCYTOSIS 0; MACROCYTOSIS 0
[2023-11-14] MEDS: METOPROLOL TARTRATE 5 MG/5 ML VIAL IVPUSH PRN (09:27)
[2023-11-14] MEDS: FUROSEMIDE 40 MG/4 ML INJECTABLE VIAL IVPUSH ONE (17:40)
[2023-11-15 07:02] LABS: HEMATOCRIT 33.5 % (32.4-45.2); HEMOGLOBIN 11.7 GM/dL (10.7-15.3); MCH 33.9 pg (25.7-33.7); MCHC 34.9 g/dl (32.0-36.0); MEAN CELL VOLUME 97.3 fl (80-96); MEAN PLT VOLUME 7.7 fl (7.5-11.1); PLATELET COUNT 217 10^3/uL (134-434); RBC 3.45 M/mm3 (3.60-5.2); RDW 12.8 % (11.6-15.6); WHITE BLOOD COUNT 6.9 K/mm3 (4.0-10.0)
[2023-11-15 07:41] LABS: CHLORIDE 102 mmol/L (98-107); SODIUM 139 mmol/L (136-145)
[2023-11-15 07:44] LABS: CALCIUM 7.7 mg/dL (8.5-10.1); MAGNESIUM 1.5 mg/dL (1.8-2.4)
[2023-11-15 07:46] LABS: ALBUMIN 1.8 g/dl (3.4-5.0); CO2 31 mmol/L (21-32); GLUCOSE,RANDOM 107 mg/dL (74-106)
[2023-11-15 07:47] LABS: SGOT/AST 41 U/L (15-37)
[2023-11-15 07:48] LABS: SGPT/ALT 46 U/L (13-61)
[2023-11-15 07:49] LABS: ALK PHOS 61 U/L (45-117); CREATININE 0.6 mg/dL (0.55-1.3); TOT PROT 4.8 g/dl (6.4-8.2)
[2023-11-15 07:52] LABS: ANION GAP 6 mmol/L (4-13); BILIRUBIN,TOTAL 0.6 mg/dL (0.2-1); POTASSIUM 2.7 mmol/L (3.5-5.1)
[2023-11-15] MEDS: KCL 10 MEQ IVPB 10 MEQ/100 ML INFUS.BAG IVPB SCH (08:39)
[2023-11-15] MEDS: POTASSIUM CHLORIDE 60 MEQ in AMINO ACIDS 4.25%/D5W 1,000 ML IV SCH (09:57)
[2023-11-15] MEDS: LACTULOSE 20 GM/30 ML UDC (FOR RECTAL USE ONLY) PR SCH (09:57)
[2023-11-15] MEDS: MAGNESIUM 2GM/50ML STERILE WATER IVPB IVPB SCH (10:44)
[2023-11-15 22:47] LABS: CHLORIDE 104 mmol/L (98-107); SODIUM 136 mmol/L (136-145)
[2023-11-15 22:48] LABS: CALCIUM 7.8 mg/dL (8.5-10.1)
[2023-11-15 22:49] LABS: CO2 24 mmol/L (21-32); GLUCOSE,RANDOM 109 mg/dL (74-106); MAGNESIUM 2.2 mg/dL (1.8-2.4)
[2023-11-15 22:51] LABS: ANION GAP 8 mmol/L (4-13); POTASSIUM 6.2 mmol/L (3.5-5.1)
[2023-11-15 22:52] LABS: CREATININE 0.6 mg/dL (0.55-1.3)
[2023-11-16 00:30] LABS: POTASSIUM 3.4 mmol/L (3.5-5.1)
[2023-11-16 00:32] LABS: BLOOD UREA NITROGEN 29.8 mg/dL (7-18); CALCIUM 8.2 mg/dL (8.5-10.1); MAGNESIUM 2.8 mg/dL (1.8-2.4)
[2023-11-16 00:36] LABS: CREATININE 0.5 mg/dL (0.55-1.3)
[2023-11-16] MEDS: MAGNESIUM SULFATE IN WATER 2 GM/50 ML IVPB IVPB ONE (01:04)
[2023-11-16] MEDS: KCL 10 MEQ IVPB 10 MEQ/100 ML INFUS.BAG IVPB SCH (03:04)
[2023-11-16 08:29] LABS: HEMATOCRIT 33.5 % (32.4-45.2); HEMOGLOBIN 12.1 GM/dL (10.7-15.3); MCH 34.7 pg (25.7-33.7); MCHC 36.1 g/dl (32.0-36.0); MEAN CELL VOLUME 96.1 fl (80-96); MEAN PLT VOLUME 7.8 fl (7.5-11.1); PLATELET COUNT 228 10^3/uL (134-434); RBC 3.49 M/mm3 (3.60-5.2); RDW 12.8 % (11.6-15.6); WHITE BLOOD COUNT 11.5 K/mm3 (4.0-10.0)
[2023-11-16 08:53] LABS: POTASSIUM 4.3 mmol/L (3.5-5.1)
[2023-11-16 09:03] LABS: BLOOD UREA NITROGEN 25.8 mg/dL (7-18); CALCIUM 7.8 mg/dL (8.5-10.1); MAGNESIUM 2.3 mg/dL (1.8-2.4)
[2023-11-16 09:06] LABS: CREATININE 0.5 mg/dL (0.55-1.3); PHOSPHOROUS 1.9 mg/dL (2.5-4.9)
[2023-11-16 09:08] LABS: BILIRUBIN,TOTAL 0.6 mg/dL (0.2-1); TOT PROT 5.4 g/dl (6.4-8.2)
[2023-11-16] MEDS: IBUPROFEN 800 MG/8 ML IJ IVPB SCH (12:42)
[2023-11-16] MEDS: IBUPROFEN 800 MG/8 ML IJ IVPB ONE (12:59)
[2023-11-17 07:31] LABS: HEMATOCRIT 32.5 % (32.4-45.2); MCH 33.1 pg (25.7-33.7); MCHC 33.8 g/dl (32.0-36.0); MEAN CELL VOLUME 97.9 fl (80-96); MEAN PLT VOLUME 7.9 fl (7.5-11.1); PLATELET COUNT 203 10^3/uL (134-434); RBC 3.32 M/mm3 (3.60-5.2); RDW 12.9 % (11.6-15.6); WHITE BLOOD COUNT 8.8 K/mm3 (4.0-10.0)
[2023-11-17 07:54] LABS: ALBUMIN 1.7 g/dl (3.4-5.0); CALCIUM 7.9 mg/dL (8.5-10.1)
[2023-11-17 07:55] LABS: MAGNESIUM 1.8 mg/dL (1.8-2.4)
[2023-11-17 07:57] LABS: CREATININE 0.4 mg/dL (0.55-1.3)
[2023-11-17 07:58] LABS: PHOSPHOROUS 2.1 mg/dL (2.5-4.9)
[2023-11-17 07:59] LABS: BILIRUBIN,TOTAL 0.6 mg/dL (0.2-1); TOT PROT 4.7 g/dl (6.4-8.2)
[2023-11-18] MEDS ORDERED: PIPERACILLIN/TAZOBACTAM 3.375 GM VIAL IVPB ONE (01:34)
[2023-11-18 07:55] LABS: BASO % 0.6 % (0-2.0); EOS % 2.6 % (0-4.5); HEMATOCRIT 30.4 % (32.4-45.2); HEMOGLOBIN 10.4 GM/dL (10.7-15.3); LYMPH % 7.5 % (8-40); MCH 33.4 pg (25.7-33.7); MCHC 34.1 g/dl (32.0-36.0); MEAN CELL VOLUME 97.9 fl (80-96); MONO % 12.5 % (3.8-10.2); NEUT % 76.8 % (42.8-82.8); PLATELET COUNT 243 10^3/uL (134-434); RBC 3.11 M/mm3 (3.60-5.2); RDW 12.8 % (11.6-15.6); WHITE BLOOD COUNT 8.8 K/mm3 (4.0-10.0)
[2023-11-18 08:22] LABS: POTASSIUM 4.2 mmol/L (3.5-5.1)
[2023-11-18 08:26] LABS: CALCIUM 8.1 mg/dL (8.5-10.1)
[2023-11-18 08:27] LABS: ALBUMIN 1.8 g/dl (3.4-5.0); BLOOD UREA NITROGEN 19.5 mg/dL (7-18); MAGNESIUM 1.7 mg/dL (1.8-2.4)
[2023-11-18 08:30] LABS: CREATININE 0.4 mg/dL (0.55-1.3); PHOSPHOROUS 2.2 mg/dL (2.5-4.9)
[2023-11-18 08:31] LABS: BILIRUBIN,TOTAL 0.5 mg/dL (0.2-1)
[2023-11-18] MEDS: NAPH,MB-DB/K PH,MBDB POWDER PACKET PO SCH (10:08)
[2023-11-18] MEDS: MAGNESIUM 2GM/50ML STERILE WATER IVPB IVPB SCH (10:08)
[2023-11-18] MEDS: SODIUM PHOSPHATE - 45 MM in DEXTROSE 5%-WATER - 500 ML IVPB ONE (11:35)
[2023-11-18] MEDS ORDERED: METOPROLOL TARTRATE 5 MG/5 ML VIAL IVPUSH PRN (14:02)
[2023-11-18] MEDS: VALPROATE SODIUM 250 MG/5 ML UNIT DOSE CUP PO SCH (21:21)
[2023-11-18] MEDS: METOPROLOL TARTRATE 50 MG TABLET (FP) PO SCH (21:28)
[2023-11-19] MEDS: ZINC OXIDE/PANTHENOL/VITAMIN E 56 GM TUBE TP PRN (05:55)
[2023-11-19] MEDS ORDERED: LABETALOL HCL 5 MG/1 ML (100MG/20 ML VIAL) IVPUSH ONE (06:35)
[2023-11-19 07:20] LABS: BASO % 0.5 % (0-2.0); HEMATOCRIT 35.7 % (32.4-45.2); HEMOGLOBIN 12.9 GM/dL (10.7-15.3); LYMPH % 9.5 % (8-40); MCH 34.4 pg (25.7-33.7); MCHC 36.1 g/dl (32.0-36.0); MEAN CELL VOLUME 95.3 fl (80-96); MEAN PLT VOLUME 7.7 fl (7.5-11.1); MONO % 13.2 % (3.8-10.2); NEUT % 73.8 % (42.8-82.8); PLATELET COUNT 283 10^3/uL (134-434); RBC 3.74 M/mm3 (3.60-5.2); WHITE BLOOD COUNT 7.3 K/mm3 (4.0-10.0)
[2023-11-19 07:38] LABS: POTASSIUM 4.1 mmol/L (3.5-5.1)
[2023-11-19] MEDS: LABETALOL HCL 20 MG/4 ML VIAL IVPUSH ONE (07:45)
[2023-11-19 07:49] LABS: BLOOD UREA NITROGEN 14.1 mg/dL (7-18)
[2023-11-19 07:50] LABS: CREATININE 0.5 mg/dL (0.55-1.3); PHOSPHOROUS 3.8 mg/dL (2.5-4.9)
[2023-11-19 07:51] LABS: BILIRUBIN,TOTAL 0.5 mg/dL (0.2-1)
[2023-11-19 08:02] LABS: CALCIUM 7.8 mg/dL (8.5-10.1)
[2023-11-19 08:04] LABS: ALBUMIN 2.2 g/dl (3.4-5.0)
[2023-11-20 08:15] LABS: HEMATOCRIT 34.7 % (32.4-45.2); HEMOGLOBIN 11.8 GM/dL (10.7-15.3); MCH 32.9 pg (25.7-33.7); MEAN CELL VOLUME 96.8 fl (80-96); MEAN PLT VOLUME 7.9 fl (7.5-11.1); PLATELET COUNT 274 10^3/uL (134-434); RBC 3.59 M/mm3 (3.60-5.2); RDW 13.1 % (11.6-15.6); WHITE BLOOD COUNT 7.8 K/mm3 (4.0-10.0)
[2023-11-20 08:35] LABS: POTASSIUM 4.7 mmol/L (3.5-5.1)
[2023-11-20 08:49] LABS: CALCIUM 8.1 mg/dL (8.5-10.1); MAGNESIUM 1.8 mg/dL (1.8-2.4)
[2023-11-20 08:50] LABS: ALBUMIN 2.1 g/dl (3.4-5.0); BLOOD UREA NITROGEN 18.5 mg/dL (7-18)
[2023-11-20 08:52] LABS: PHOSPHOROUS 2.4 mg/dL (2.5-4.9)
[2023-11-20 08:53] LABS: CREATININE 0.5 mg/dL (0.55-1.3)
[2023-11-20 08:54] LABS: BILIRUBIN,TOTAL 0.4 mg/dL (0.2-1); TOT PROT 5.8 g/dl (6.4-8.2)
[2023-11-20] MEDS: LISINOPRIL 5 MG TABLET PO SCH (12:38)
[2023-11-21 07:45] LABS: HEMATOCRIT 34.4 % (32.4-45.2); HEMOGLOBIN 11.6 GM/dL (10.7-15.3); MCH 32.9 pg (25.7-33.7); MCHC 33.7 g/dl (32.0-36.0); MEAN CELL VOLUME 97.4 fl (80-96); MEAN PLT VOLUME 7.7 fl (7.5-11.1); PLATELET COUNT 290 10^3/uL (134-434); POTASSIUM 4.8 mmol/L (3.5-5.1); RBC 3.53 M/mm3 (3.60-5.2); RDW 12.8 % (11.6-15.6); WHITE BLOOD COUNT 9.3 K/mm3 (4.0-10.0)
[2023-11-21 08:04] LABS: ALBUMIN 2.1 g/dl (3.4-5.0); BLOOD UREA NITROGEN 19.8 mg/dL (7-18); CALCIUM 8.5 mg/dL (8.5-10.1); MAGNESIUM 1.8 mg/dL (1.8-2.4)
[2023-11-21 08:06] LABS: CREATININE 0.5 mg/dL (0.55-1.3); PHOSPHOROUS 2.3 mg/dL (2.5-4.9)
[2023-11-21 08:11] LABS: BILIRUBIN,TOTAL 0.4 mg/dL (0.2-1); TOT PROT 5.8 g/dl (6.4-8.2)
[2023-11-21 09:44] LABS: ANISOCYTOSIS 1+; MACROCYTOSIS 0
[2023-11-22 06:41] VITALS: RESP 20
[2023-11-22 10:41] VITALS: BP 133/67; PULSE 73; TEMP 98.2
== END 2023-11-22 11:46 | DRG 177 ==
LOC: JER 18:18 → JERBED 11-07 00:55 → OBSVTOIN 11-07 09:16 → J4W 11-07 13:09
PROVIDERS: ADMIT Internal Medicine; ATTEND Internal Medicine
DX: J69.0 Pneumonitis due to inhalation of food and vomit (principal); E43 Unspecified severe protein-calorie malnutrition; G93.41 Metabolic encephalopathy; J96.01 Acute respiratory failure with hypoxia; E87.1 Hypo-osmolality and hyponatremia; I50.32 Chronic diastolic (congestive) heart failure; F03.911 Unspecified dementia, unspecified severity, with agitation; E72.4 Disorders of ornithine metabolism; I42.8 Other cardiomyopathies; Z68.1 Body mass index [BMI] 19.9 or less, adult; R63.4 Abnormal weight loss; I48.91 Unspecified atrial fibrillation; K21.9 Gastro-esophageal reflux disease without esophagitis; E78.00 Pure hypercholesterolemia, unspecified; F03.90 Unspecified dementia, unspecified severity, without behavioral disturbance, psychotic disturbance, mood disturbance, and anxiety; G43.909 Migraine, unspecified, not intractable, without status migrainosus; E78.5 Hyperlipidemia, unspecified; I11.0 Hypertensive heart disease with heart failure; H91.93 Unspecified hearing loss, bilateral; E03.9 Hypothyroidism, unspecified; I44.4 Left anterior fascicular block; R29.6 Repeated falls; Z86.73 Personal history of transient ischemic attack (TIA), and cerebral infarction without residual deficits
CPT/HCPCS: 0241U-QW; 36415; 36600; 70450-TC; 71045-TC-FY; 71250-TC; 80048; 80053; 80164; 81003; 82140; 82436; 82550; 82607; 82803; 82962; 83735; 83880; 83930; 83935; 84100; 84133; 84300; 84439; 84443; 84481; 84484; 85025; 85027; 85610; 85730; 86850; 86900; 86901; 87040; 87086; 93005; 93010; 94640; 97162-GP; 99285-25; G0378; J0282